=== PATIENT | female | born 1935 | race Caucasian/White ===

== ENCOUNTER → 2017-03-08 | Outpatient (CLI) | payer MEDICARE, MEDICAID ==
[~2017-03-08] MED LIST: ACET-2321 PO; ALBU8.5H INH; ASPI-917 PO; DOCU100C19 PO; ENAL20TA PO; FLUT16SP EA NOSTRIL; GLUC1CAP9 PO; GLYB2.5T5 PO; HYDR-2164 PO; LEVO25TA51 PO; LOPE2CAP PO; METO-68 PO; NIAC-9 PO; PARO30TA60 PO; POLY17PO18 PO; PREN1TAB53 PO; TOLT4CAP12 PO; TRAM50TA53 PO
[2017-03-08 15:14] LABS: BLOOD, URINE NEGATIVE (NEGATIVE); COLOR,URINE YELLOW (YELLOW); LEUKOCYTE ESTERASE ,URINE TRACE (NEGATIVE); NITRITE,URINE NEGATIVE (NEGATIVE); UROBILINOGEN,URINE 0.2 EU/DL (NORMAL)
== END ==
LOC: LABN.SV 15:07
PROVIDERS: ATTEND Family Medicine
DX: I10 Essential (primary) hypertension (principal)
CPT/HCPCS: 81003

== ENCOUNTER 2018-03-17 05:31 | Inpatient (IN) ==
[2018-03-17] MEDS ORDERED: CEFAZOLIN 1 G INJECTION IVP ONE (05:52)
[2018-03-17 06:00] VITALS: BMI 36.1
[2018-03-17] MEDS ORDERED: FAMOTIDINE PB 20 MG/50 ML BAG IV ONE (06:00)
[2018-03-17] MEDS ORDERED: METOCLOPRAMIDE 10mg/2ml INJECTION IVP ONE (06:00)
[2018-03-17] MEDS ORDERED: LIDOCAINE 1% (10mg/ml) 2mL INJ PF SDV ID ONE (06:00)
[2018-03-17] MEDS ORDERED: ACETAMINOPHEN 500 MG TABLET PO ONE (06:00)
[2018-03-17] MEDS: LR 1,000 ML IV SCH ×2 (06:15→07:45)
[2018-03-17] MEDS ORDERED: VANCOMYCIN 1,000 MG INJECTION ONE (06:21)
[2018-03-17] MEDS: NOZIN NASAL SWAB NAS SCH ×5 (06:23→23:24)
[2018-03-17] MEDS: ONDANSETRON 4 MG/2 ML INJECTION IVP ONE ×2 (06:24→06:26)
--- NOTE | 2018-03-17 06:44 | Anesthesia Preoperative Report ---
Anesthesia Preoperative Record - Date and Time Date: 03/17/18 Preoperative Diagnosis: Lt TKA M17.12 primary osteoarthritis Proposed Procedure: left total knee arthroplasty NPO Since Date: 03/16/18 NPO Since Time: 23:00 Allergies/Adverse Reactions: Allergies Allergy/AdvReac Type Severity Reaction Status Date / Time adhesive Allergy Mild REDNESS Verified 03/17/18 06:02 amoxicillin Allergy Unknown Verified 03/17/18 06:02 clavulanic acid Allergy Unknown Verified 03/17/18 06:02 latex Allergy Unknown Verified 03/17/18 06:02 metformin Allergy Unknown Verified 03/17/18 06:02 ondansetron Allergy Unknown Verified 03/17/18 06:02 codeine AdvReac Mild LIGHT-HEADE Verified 03/17/18 06:02 DNESS - Vital Signs Vital Signs: Temperature 98.4 F 03/17/18 05:59 Pulse Rate 74 03/17/18 06:20 Respiratory Rate 16 03/17/18 05:59 Blood Pressure 155/72 H 03/17/18 06:20 Pulse Oximetry 97 03/17/18 05:59 Height and Weight: Height 1.66 m Weight 100.1 kg Body Mass Index 36.1 - Medications Inpatient Medications: Current Medications Cefazolin Sodium (Kefzol 1 Gm Vial) 2 g IVP PREOP ONE Stop: 03/17/18 05:53 Lactated Ringer's (Lactated Ringers) 1,000 mls @ 50 mls/hr IV .Q20H [facility] Last Admin: 03/17/18 06:15 Dose: 50 mls/hr Epinephrine HCl 0.25 mg/Bupivacaine HCl 30 ml/Ketorolac Tromethamine 60 mg/ Sodium Chloride 62.25 mls @ 1 mls/hr OPSITE INTRAOP ONE PRN Reason: Protocol Stop: 03/19/18 22:14 Isopropyl Alcohol (Nozin Nasal Swab) 1 each LOUANN Q1M RICHELLE Stop: 03/17/18 12:18 Last Admin: 03/17/18 06:27 Dose: 1 each Sodium Chloride (Iv Flush) 10 - 80 ml IV PRN PRN PRN Reason: Flushing Tranexamic Acid (Cyklokapron) 1,000 mg TOP INTRAOP ONE Stop: 03/17/18 12:15 Home Medications: Home Medications Medication Instructions Recorded Confirmed Type hydroCHLOROthiazide 25 mg PO DAILY #0 12/05/08 03/10/18 History [Hydrochlorothiazide] Fluticasone Nasal [place] [Flonase] 1 spray EA NOSTRIL BID #0 04/26/16 03/10/18 History Niacin [Niacin ER] 500 mg PO HS #0 04/26/16 03/10/18 History Acetaminophen 650 mg PO BID 12/03/17 03/10/18 History Aspirin [Aspirin EC] 81 mg PO DAILY 12/03/17 03/16/18 History Calcium Carbonate/Vitamin D3 1 tab PO BID 12/03/17 03/10/18 History [Calcium 500-Vit D3 200 Tablet] Clopidogrel [Plavix] 75 mg PO DAILY 12/03/17 03/16/18 History Docusate Sodium [Colace] 100 mg PO BID 12/03/17 03/10/18 History Enalapril [Vasotec] 20 mg PO DAILY 12/03/17 03/10/18 History Esomeprazole Magnesium [Nexium] 40 mg PO ACB 12/03/17 03/10/18 History GlipiZIDE [Glucotrol] 5 mg PO BID 12/03/17 03/10/18 History Levothyroxine Tab [Synthroid] 25 mcg PO ACB 12/03/17 03/10/18 History Methylcellulose [Citrucel] 500 mg PO DAILY 12/03/17 03/10/18 History Metoprolol Tartrate [Lopressor] 50 mg PO BID 12/03/17 03/10/18 History PARoxetine HCl [Paxil] 30 mg PO DAILY 12/03/17 03/10/18 History Simvastatin [Zocor] 20 mg PO HS 12/03/17 03/10/18 History Tolterodine LA 4 mg [Detrol LA] 4 mg PO DAILY 12/03/17 03/10/18 History vsqrrnbq-hry-epupd acid 0.4 1 tab PO DAILY 01/26/18 03/10/18 History mg-lycopene 300 mcg-lutein 250 mcg tablet Albuterol/Ipratropium [Duoneb] 1 unit AEROSOL BID 03/10/18 03/10/18 History raNITIdine HCl [Zantac] 150 mg PO BID 03/10/18 03/10/18 History - Medical History Respiratory: DENIES: Sleep Apnea Cardiovascular: Reports: Coronary Artery Disease (stent 10 years ago ), Hypertension, High Cholesterol, Other (PVD, cleared for surgery per Dr. Waddell ) Gastrointestional: Reports: Gastroesophageal Reflux Disease, Morbid Obesity Neuro/Musculoskeletal: Reports: Depression, Other (chronic lower back pain and numbness in legs ) Renal/Endocrine: Reports: Diabetes Mellitus Type 2, Thyroid Disease - Surgical History HEENT Surgeries: Reports: Tonsillectomy (and uvulectomy age 8) Cardiac Surgeries/Treatments: Reports: Cardiac Catheterization (cardiac stent 2004) GI Surgery/Treatments: Reports: Appendectomy, Cholecystectomy, Hernia Repair (w / mesh 2005), Colonoscopy (2004) Musculoskeletal Surgery/Tx: Reports: Knee Arthroscopy, Orthopedic Surgery (Lt hip 2015), Shoulder Arthroscopy, Total Hip Replacement (bilateral), Total Knee Replacement (Rt TKA 2005) Reproductive Surgery/Treatment: Reports: Hysterectomy Anesthesia Reactions: Other (possible acoma for 2 days hip or knee ) Hx Family Anesthesia Reaction: No History of Motion Sickness: No - Social History Smoking Status: Former smoker Substance Use Type: does not use Alcohol Intake Frequency: does not drink - Pertinent Findings Laboratory: CBC and BMP 03/17/18 06:08 BMP 03/17/18 06:08 Sodium 135 Potassium 3.6 Chloride 93 L Carbon Dioxide 32 H BUN 23.0 H Creatinine 0.8 Glucose 215 H Calcium 9.7 EKG: Sinus Rhythm - Discussion Discussion: Discussed risks/options/alternatives of anesthesia and questions answered. Patient consents. Nursing pain assessment noted. Attestation Statement: Prior to the delivery of any anesthetic medication, I examined the patient, developed the plan, obtained the patient's consent and discussed the risk and benefits of the procedure with the patient/guardian.
[2018-03-17] MEDS ORDERED: VANCOMYCIN 1,000 MG INJECTION IAR ONE (07:05)
[2018-03-17] MEDS ORDERED: LIDOCAINE 2% (100mg/5mL) 5ml PF SDV ONE (07:07)
[2018-03-17] MEDS ORDERED: KETAMINE 500 MG/10 ML INJECTION ONE (07:07)
[2018-03-17] MEDS ORDERED: FentaNYL 250 MCG/5 ML INJECTION ONE (07:07)
[2018-03-17] MEDS ORDERED: PROPOFOL 500 MG/50 ML VIAL ONE (07:07)
--- NOTE | 2018-03-17 07:17 | History & Physical Update ---
- History and Physical Update Date: 03/17/18 Update: I evaluated this patient and found no changes in the history and clinical exam findings. The treatment plan and recommendations are also unchanged from the previous documentation. Patient is ASA3, Due to patient's advanced age (82), CAD with history of angioplasty, HTN, DM II, hypothyroidism. She will require closer monitoring post-operatively and was changed to inpatient status.
[2018-03-17] MEDS ORDERED: EPINEPHrine PF 0.25 MG, BUPIVACAINE 0.25% PF 30 ML, KETOROLAC INJ 60 MG in NS 30 ML OPSITE ONE (08:00)
[2018-03-17] MEDS ORDERED: ROPIVACAINE 0.5% (5mg/ml) 30ml INJ ONE (08:26)
[2018-03-17] MEDS ORDERED: FentaNYL 100 MCG/2 ML INJECTION IVP PRN (08:36)
--- NOTE | 2018-03-17 08:47 | Operative Note ---
- Procedure Preoperative Diagnosis: Left knee primary degenerative joint disease Postoperative Diagnosis: Same as preoperative diagnosis. Surgeon: Caty More MD Field Party Manager: Estrella Rollins Complications: None. Anesthesia: General Estimated Blood Loss: See Anesthesia Record. Fluids: Please see Anesthesia Record. Description of Procedure: Mrs. Mckenzie and her left knee were identified and marked in the preoperative holding area. She was brought back to the operating suite. General anesthetic was administered and she was placed supine on the operating table. The left lower extremity was prepped and draped in my normal sterile fashion. Timeout was performed. The Goko robotic arm was used during the surgery. She is a fixed varus deformity with a significant flexion contracture. A standard anterior midline incision followed by medial parapatellar arthrotomy was performed. Anterior fat pad and meniscus were removed. She had significant arthritic disease in all 3 compartments. The patella was everted and a patella osteotomy was performed leaving 13 mm of bone. Tibial and femoral arrays and checkpoints were placed both within the original incision. The bone was then registered with the Goko robot. Osteophytes were removed and gaps were captured both 90 and 0 degrees with correction. Goko robotic software was utilized to obtain an 18 mm gaps throughout. The Goko robotic arm was then used to assist with the bone cuts. Posterior osteophytes and remaining meniscus were removed. Trial components were placed. We used a 5 femur and a 4 tibia with a 9 mm spacer and a 2 patella. She tracked well and was well balanced throughout range of motion. The arrays were then removed and the knee exsanguinated and the tourniquet inflated to 250 mmHg. The tibia was then stamped the proper rotation. I then cemented the components into place and allowed them to cure in extension. During this time the tourniquet was let down and hemostasis was obtained with electrocautery. 1 g of TXA was allowed to sit in the wound for 5 minutes and then suctioned out. After the cement had cured the knee again was taken through range of motion and was well balanced and tracked well. After a final thorough irrigation with normal saline as well as Betadine 1 g vancomycin powder was placed into the knee joint. We then closed the capsule with #1 Vicryl. I then left my urgent care physician assistant closed the subcutaneous tissue with both 2-0 Vicryl in an interrupted fashion as well as a running 0 V-lock barbed suture. The subcutaneous tissue closed with a carla Monoderm. Mediplex dressing will be placed and the patient will be taken back to the recovery room under the care of anesthesia.
[2018-03-17] MEDS ORDERED: ONDANSETRON 4 MG/2 ML INJECTION IVP PRN (09:53)
[2018-03-17] MEDS ORDERED: TRAMADOL 50 MG TABLET PO PRN (09:53)
[2018-03-17] MEDS ORDERED: DiphenhydrAMINE 50 MG/ML INJECTION IVP PRN (09:53)
[2018-03-17] MEDS ORDERED: LORazepam 1 MG TABLET PO PRN (09:53)
[2018-03-17] MEDS ORDERED: NOZIN NASAL SWAB NAS ONE (09:53)
[2018-03-17] MEDS ORDERED: DiphenhydrAMINE 25 MG CAPSULE PO PRN (09:53)
[2018-03-17] MEDS: NS 1,000 ML IV SCH ×2 (10:05→23:24)
[2018-03-17] MEDS ORDERED: FALL RISK - PHARMACY CONSULT MC ONE (10:20)
--- NOTE | 2018-03-17 10:26 | Anesthesia Procedure Note ---
Peripheral Nerve Blockade - Procedure Physician: Markie More MD Date: 03/17/18 Surgical Procedure: left knee arthroplasty Discussion: Discussed risks/options/alternatives of anesthesia and questions answered. Patient consents. Nursing pain assessment noted. Block Start: 09:20 Block Stop: 09:21 Blocked Employed: Adductor Canal Indication: Post-Operative Pain Approach: Left Side Confirmed Position: Supine Patient: Consent, Risks/Benefits Discussed, Informed, Post Block Act. Discussed IV Sedation: No Initial Vital Signs: Temperature 98.4 F 03/17/18 05:59 Temperature Source Oral 03/17/18 05:59 Pulse Rate 81 03/17/18 05:59 Respiratory Rate 16 03/17/18 05:59 Blood Pressure 194/84 H 03/17/18 05:59 Blood Pressure Mean 120 03/17/18 05:59 Blood Pressure Position Sitting 03/17/18 05:59 Pulse Oximetry 97 03/17/18 05:59 Oxygen Delivery Method 03/17/18 05:59 Post Vital Signs: Temperature 96.6 F L 03/17/18 10:02 Pulse Rate 83 03/17/18 10:02 Respiratory Rate 16 03/17/18 10:02 Blood Pressure 167/101 H 03/17/18 10:02 Pulse Oximetry 96 03/17/18 10:02 Initial Pain Pain Score: 3 Post Block Pain Score: 3 Prep: Chlorhexadine/ETOH Ultrasound Used?: Yes - Injectate Ropivacaine (%): 0.5 Ropivacaine (mL): 15 Injection: Injection made incrementally with constant monitoring and aspiration every ml
--- NOTE | 2018-03-17 10:32 | Anesthesia Postoperative Note ---
- Date and Time Date: 03/17/18 Time: 10:00 - Status Patient Participated in Evaluation: Patient Participated in Person Vital Signs: Temperature 96.6 F L 03/17/18 10:02 Pulse Rate 83 03/17/18 10:02 Respiratory Rate 16 03/17/18 10:02 Blood Pressure 167/101 H 03/17/18 10:02 Pulse Oximetry 96 03/17/18 10:02 Respiratory Function: Airway Patent Cardiovascular Function: Regular Pulse EKG: Sinus Rhythm Mental Status: Alert and Oriented Pain Intensity: 3 Hydration: IV Infusing Complications During Recover: None Apparent - Follow-Up Instructions Instructions: Per Surgeon
[2018-03-17] MEDS: INSULIN ASPART 100unit/ml INJECTION SQ PRN ×3 (10:35→20:40)
--- NOTE | 2018-03-17 11:10 | XRay Report ---
Indication: postoperative image PROCEDURE: XR knee LT 2V: Encounter: Initial Comparison: December 31, 2017 Findings: Postoperative changes of left total knee replacement are seen. There is expected postoperative subcutaneous gas. No evidence of hardware failure or acute fracture. No retained radiopaque surgical instruments or sponges. Overlying material causing artifact. Impression: New left total knee prosthesis without evidence of immediate complication. .
[2018-03-17] MEDS ORDERED: SALINE FLUSH 10ml SYRINGE IV PRN (12:14)
[2018-03-17] MEDS ORDERED: TRANEXAMIC ACID 1,000 MG/10 ML VIAL TOP ONE (12:14)
[2018-03-17] MEDS: ACETAMINOPHEN 325 MG TABLET PO SCH ×3 (13:50→22:56)
[2018-03-17] MEDS: CEFAZOLIN 2 G in NS 100 ML IV SCH ×2 (15:04→23:25)
[2018-03-17] MEDS ORDERED: NIACIN ER 500 MG TABLET PO SCH (21:00)
[2018-03-17] MEDS ORDERED: SENNOSIDES 8.6 MG TABLET PO SCH (21:00)
[2018-03-17] MEDS ORDERED: SIMVASTATIN 20 MG TABLET PO SCH (21:00)
[2018-03-17] MEDS: DOCUSATE SODIUM 100 MG CAPSULE PO SCH ×2 (22:56→22:58)
[2018-03-17] MEDS: RANITIDINE 150 MG TABLET PO SCH (22:59)
[2018-03-17] MEDS: FLUTICASONE NASAL SPRAY 50mcg EA NOSTRIL SCH (23:00)
[2018-03-17] MEDS: CALCIUM 500 + VIT D 200 TABLET PO SCH (23:00)
[2018-03-18] MEDS: NOZIN NASAL SWAB NAS SCH ×2 (06:10→13:37)
[2018-03-18] MEDS: INSULIN ASPART 100unit/ml INJECTION SQ PRN ×2 (06:10→12:26)
[2018-03-18] MEDS ORDERED: OMEPRAZOLE 20 MG CAPSULE PO SCH (06:30)
[2018-03-18] MEDS ORDERED: LEVOTHYROXINE 25 MCG TABLET PO SCH (06:30)
[2018-03-18] MEDS: DOCUSATE SODIUM 100 MG CAPSULE PO SCH ×2 (08:45→09:20)
--- NOTE | 2018-03-18 08:49 | Orthopedic Progress Note ---
Date: Date: 03/18/18 Time: 842 Subjective/Severity of Illness: Raven is lying in bed this morning when I visit. Patient states her pain has done well, but feels "it needs to rest". She has ambulated up to the bathroom with nursing. Overnight patient's mepilex dressing became saturated with bloody drainage, ABD and gauze applied. BP were elevated after surgery yesterday (SBP 170-200s), home meds restarted and SBP improved 130-150s. Blood glucose 183-291, receiving Novolog SS. Patient was nauseated after surgery, improved this morning with increased appetite. Will restart home medications. Hgb 9.2. Denies CP, SOA, nausea improved this morning. She is independent living at [facility]. Orthopedic Exam Vital signs: Temperature 97.9 F 03/18/18 03:50 Pulse Rate 82 03/18/18 03:50 Respiratory Rate 14 03/18/18 03:50 Blood Pressure 131/72 03/18/18 03:50 Pulse Oximetry 94 03/18/18 06:47 - Constitutional General Appearance: Present: alert, orientated x3 - Respiratory Exam Present: CTA bilaterally, non-labored - Cardiovascular Exam Present: Regular Rate/Rhythm, murmur - Extremities Exam Present: pulses intact. Absent: calf tenderness, Bib's sign - Dressing Comments: Bloody drainage on Gauze. Eccymossis along surgical incision. Cleansed surgical site with chloraprep and applied christiano, hemostasis achieved. Mepilex dressing applied. - Neurological Exam Present: intact to light touch, no deficits - Labs Result Diagrams: 03/18/18 04:04 03/18/18 04:04 Abnormal lab results 03/18/18 03/18/18 Range/Units 04:04 04:04 Hgb 9.2 L (12-16) GM/DL Hct 28.5 L (36-46) % BUN 23.0 H (7-17) MG/DL Glucose 143 H (65-110) MG/DL H & H 03/18/18 Range/Units 04:04 Hgb 9.2 L (12-16) GM/DL Hct 28.5 L (36-46) % Orthopedic Assessment and Plan (1) Primary osteoarthritis of left knee Status: Acute Assessment and Plan: Current anti-coagulation protocol with ASA 81mg daily and Plavix 75mg daily VTE prophylaxis. SCD's for added protection PT/OT services to improve independent function. Discharge Planning per Case Management. - Anticoagulation Therapy Anticoagulation: Resume home anticoagulant - Additional Diagnoses Hypertension: stable, resume medications Diabetes: resume oral medications, continue with sliding scale insulin, other ( Will continue to closely monitor BG today. ) Anemia: no intervention required, patient was asymptomatic, labs monitored Hospital Course Summary Disclaimer: The visit summary below is not to be considered part of the above Progress Note.
[2018-03-18] MEDS ORDERED: TOLTERODINE 4 MG PO SCH (09:00)
[2018-03-18] MEDS ORDERED: POLYETHYL GLYCOL 3350 17gm PACKET PO SCH (09:00)
[2018-03-18] MEDS ORDERED: ASPIRIN *EC* 81 MG TABLET PO SCH (09:00)
[2018-03-18] MEDS ORDERED: CLOPIDOGREL 75 MG TABLET PO SCH (09:00)
[2018-03-18] MEDS ORDERED: GlipiZIDE 5 MG TABLET PO SCH (09:00)
[2018-03-18] MEDS ORDERED: PAROXETINE 20 MG TABLET PO SCH (09:00)
--- NOTE | 2018-03-18 09:01 | Procedure Note ---
Date of procedure: 03/17/18 Procedure: Patient complaining of sensation of FB in right eye. Was irrigated with saline by nursing, eyelash irrigated out. Patient continued to have sensation of FB. Applied Fluorescein dye to lower eyelid. Black light then used to asses for corneal abrasion. No uptake of fluorescein dye noted. Upper eyelid inverted, no FB noted. Patient tolerated well.
[2018-03-18] MEDS ORDERED: SENNOSIDES 8.6 MG TABLET PO PRN (09:17)
[2018-03-18] MEDS: ACETAMINOPHEN 325 MG TABLET PO SCH ×2 (09:20→13:35)
[2018-03-18] MEDS: CALCIUM 500 + VIT D 200 TABLET PO SCH (09:21)
[2018-03-18] MEDS: RANITIDINE 150 MG TABLET PO SCH (09:21)
[2018-03-18] MEDS: FLUTICASONE NASAL SPRAY 50mcg EA NOSTRIL SCH (09:23)
[2018-03-18 09:41] VITALS: RESP 16; O2SAT 97
[2018-03-18 12:29] VITALS: BP 149/85; PULSE 98; TEMP 98.4
--- NOTE | 2018-03-18 13:27 | Discharge Summary ---
Orthopedic Discharge Info Date of admission: 03/17/18 07:14 Anticipated date of discharge: 03/18/18 Primary care physician: Randal Deluna MD Attending Physician: Markie More MD Consults: 03/17/18 05:52 Consult to Anesthesiology [CONS] Routine Reason For Exam: Preoperative Assessment 03/17/18 09:53 Case Management Consult [CONS] Routine Reason For Exam: Discharge Planning DME-Walker [CONS] Routine Height: 5 ft 5.5 in Weight: 100.1 kg Total Joint Outpatient Therapy [CONS] Routine Comment: Remove dressing in 2 weeks 03/18/18 IRU Screening [Inpatient Rehab Screening] [CONS] Routine - Discharge Diagnosis (1) Primary osteoarthritis of left knee Status: Acute - Procedures Procedures: Procedures Ambulation and gait training (02/19/08) Exercise, not elsewhere classified (02/19/08) Laparoscopic repair of umbilical hernia with graft or prosthesis (12/06/08) Occupational therapy (02/19/08) Replacement of Left Hip Joint with Metal on Polyethylene Synthetic Substitute, Uncemented, Open Approach (05/07/16) Total knee replacement (02/15/08) Transfusion of Nonautologous Red Blood Cells into Peripheral Vein, Percutaneous Approach (05/07/16) Transfusion of packed cells (12/06/08) Lt TKA 03/17/18 - Laboratory Result Diagrams: 03/18/18 04:04 03/18/18 04:04 Laboratory: Abnormal lab results 03/18/18 03/18/18 Range/Units 04:04 04:04 Hgb 9.2 L (12-16) GM/DL Hct 28.5 L (36-46) % BUN 23.0 H (7-17) MG/DL Glucose 143 H (65-110) MG/DL H & H 03/18/18 Range/Units 04:04 Hgb 9.2 L (12-16) GM/DL Hct 28.5 L (36-46) % Orthopedic Discharge HPI - HPI Comments This patient was admitted for elective surgical tx of end stage degenerative joint disease that failed to respond to conservative treatment. Further details of this is found in the admission H&P. Orthopedic Hospital Course Hospital course: 03/18/18 13:25 After appropriate preoperative clearance and signing of operative consent, the patient was given IV antibiotics, according to orthopedic protocol. The patient was taken to the operating room and underwent elective left total knee arthroplasty. Following surgery, antibiotics were discontinued less than 24 hours according to joint protocol. Aspirin and Plavix were initiated and SCDs added for DVT prevention. The dressing was clean, dry, and intact at discharge. The wound looked good, but did require placement of several christiano due to post op drainage. Pain control was obtained via multimodal approach. Bowel motivation addressed with scheduled and PRN medications. Early mobilization was initiated through PT services. Discharge arrangements made by a collaborative effort between the patient and Case Management. Her other chronic medical conditions have remained stable. Blood sugars were elevated and sliding scale is used in addition to her home meds. This will be monitored closely in IRU. Her BP has been slightly elevated but improving. She had some bloody drainage from the wound and christiano were placed. Will monitor for additional drainage while in IRU. Follow-up is scheduled in 2-3 weeks. Discharge instructions given by orthopedic providers and nursing staff at discharge. Discharge condition was good. 03/18/18 13:27 Care extended to > 2 midnight stays?: No Discharge Plan - Med Rec/Dispo Referrals/Follow Up: Markie More MD [Physician] - 04/08/18 10:30 am [facility] Instructions: [facility] Postop Instructions Prescriptions: New Milk of Magnesia [Mom] 30 ml PO DAILY udc PEG 3350 17gm PACKET [Miralax] 17 gm PO DAILY packet Tramadol [Ultram] 50 mg PO Q6H PRN tab PRN Reason: Pain Docusate Sodium [Colace] 100 mg PO BID cap Continue hydroCHLOROthiazide [Hydrochlorothiazide] 25 mg PO DAILY #0 Fluticasone Nasal [place] [Flonase] 1 spray EA NOSTRIL BID #0 Levothyroxine Tab [Synthroid] 25 mcg PO ACB Acetaminophen 650 mg PO BID Simvastatin [Zocor] 20 mg PO HS Calcium Carbonate/Vitamin D3 [Calcium 500-Vit D3 200 Tablet] 1 tab PO BID Aspirin [Aspirin EC] 81 mg PO DAILY PARoxetine HCl [Paxil] 30 mg PO DAILY GlipiZIDE [Glucotrol] 5 mg PO BID Metoprolol Tartrate [Lopressor] 50 mg PO BID Clopidogrel [Plavix] 75 mg PO DAILY Enalapril [Vasotec] 20 mg PO DAILY Methylcellulose [Citrucel] 500 mg PO DAILY Esomeprazole Magnesium [Nexium] 40 mg PO ACB raNITIdine HCl [Zantac] 150 mg PO BID Albuterol/Ipratropium [Duoneb] 1 unit AEROSOL BID Tramadol [Ultram] 50 mg PO Q6HR Niacin [Niacin ER] 500 mg PO HS #0 Docusate Sodium [Colace] 100 mg PO BID Tolterodine LA 4 mg [Detrol LA] 4 mg PO DAILY Cholecalciferol (Vitamin D3) [Vitamin D3] 1 cap PO DAILY icxdynas-exh-pviau acid 0.4 mg-lycopene 300 mcg-lutein 250 mcg tablet 1 tab PO DAILY - Disposition 62 To [facility] - Dismissal Complete Discharge Instructions are:: Complete
[2018-03-19] MEDS ORDERED: BISACODYL 10 MG SUPPOSITORY RECTALLY SCH (20:00)
== END 2018-03-18 14:00 | DRG 470 ==
LOC: SUR 05:31 → NMC.PERIOP 05:34 → SRG 07:14
PROVIDERS: ADMIT Orthopaedic Surgery; ATTEND Orthopaedic Surgery

== ENCOUNTER 2018-03-18 14:00 | Inpatient (IN) ==
[2018-03-18 14:41] VITALS: BMI 36.6
--- NOTE | 2018-03-18 15:35 | IRU History & Physical Report ---
HPI IRU Date: Date: 03/18/18 Time: 1532 Chief complaint: My knee hurts HPI: Jonah HPI: Ms. Mckenzie is a very pleasant 82-year-old female living in [place], [place] at [facility] in halfway care. Referring physician is Markie More M.D. Her primary care doctor is Randal Deluna M.D. She presented for elective left total knee replacement which was performed by Dr. More on 03/17/2018 for primary degenerative joint disease. She tolerated the procedure well. The robotic arm was used during the procedure. In the postoperative timeframe however she developed some additional bloody drainage from the knee. In addition, the patient's blood pressures were significantly elevated after surgery in the 170-200 systolic range. Blood sugars have been elevated up to 291. The patient does have history of diabetes mellitus. A1c has now patient was 7.1%. She states that she does not check her blood sugars at home. She did in the past every other day but has not done that for a long time since her machine broke. Patient is also followed by Dr. Jose Waddell for cardiology issues. She has a history of stent placement in 2004. She is on 81 mg of aspirin daily. He approved stopping Plavix and aspirin for 5 days prior to the procedure but recommended restarting them both after the knee replacement. Upon exam she does have an obvious murmur which sounds like aortic stenosis. Review of preoperative cardiology exam indicates murmur but does not further describe it. It is not clear if she has had an echocardiogram or not. She has history of essential hypertension and is on enalapril plus hydrochlorothiazide. She has history of hyperlipidemia and is on Zocor in this regard. Her preoperative electrocardiogram showed no acute changes and she was in sinus mechanism. Patient's BMI is 37. The patient is morbidly obese in view of her hypertension plus diabetes mellitus. She [facility] a [facility]. Call was placed to the facility. They indicate that she requires minimal care prior to this. She was fairly independent. She would require a bit of set up for dressing and meals but otherwise was fairly independent. She reports no steps/stairs. She has used a front-wheeled walker prior to the current admission. Prior to the current event she was fairly independent except required supervision for bathing. She was modified independent level for toilet transfers and walking. She was able to walk with a rolling walker at the facility. However she reports significant dyspnea with ambulating long distances in her living situation. She would have to stop and take a break. She denied any chest pain however. She reports episodes of vertigo/spinning sensation when she is up and about. That has happened as recently as today. She reports that she gets these from time to time. Current level of functioning indicates that she is independent for eating, requires supervision for grooming, moderate assistance for bathing and lower body dressing. She requires minimum assistance for upper body dressing, toileting and bed/chair/wheelchair transfers, toilet transfers and walking. She is able to ambulate with a rolling walker 130 feet. The following medical conditions are noted and require active monitoring and/or management: 1. s/p left total knee arthroplasty with increased blood drainage. She will require close monitoring of the wound. 2. Diabetes Mellitus type II, recently requiring insulin and with elevated blood sugars. She will require close monitoring of her blood sugars and additional insulin if needed. 3. Systolic heart murmur consistent with aortic stenosis. We do not have a confirmatory echocardiogram. However if this is aortic stenosis she is at risk of lightheadedness from that etiology. 4. Benign essential hypertension: Her blood pressure has been elevated recently on acute care. 5. Vertigo: She complains of recent vertigo/spinning sensation when she is up and about. The following therapies will be needed: 1. Physical therapy: for transfers and ambulation and stairs. 2. Occupational therapy: for ADL's and transfers. 3. Medical management: for the above conditions. 4. 24 hour Rehabilitation Nursing to monitor and address the following: Close monitoring of the surgical wound with regard to bleeding, monitoring of blood sugars, blood pressure and to reduce fall risk in view of her vertigo. 5. Dietitian in view of report of anorexia as well as her diabetes. [facility] Patient Stated Medical History Cataracts Yes Other HEENT Yes: nasal polyps, tumor behind OD Coronary Artery Disease Yes: stent 10 years ago Hypertension Yes Other Cardiology Yes: PVD, cleared for surgery per Dr. Waddell Sleep Apnea No: high risk for LEONIDAS Diabetes Mellitus Type 2 Yes Gastroesophageal Reflux Yes Disease Hx Incontinence Yes Hx Kidney Stones Yes: h/o Osteoarthritis Yes Other Musculoskeletal Yes: chronic lower back pain and numbness in legs Other Infectious Yes: I&D abscess left anterior thigh, age 11 Depression Yes Clinic Medical History (Last Reviewed 01/26/18 @ 12:13 by Markie More MD) Thyroid disease (Chronic Medical) Functional dyspepsia (Chronic Medical) Hypothyroidism (Chronic Medical) GERD (gastroesophageal reflux disease) (Chronic Medical) Dorsalgia (Chronic Medical) Hyperlipidemia (Chronic Medical) Osteoporosis (Chronic Medical) Cataracts, bilateral (Chronic Medical) Allergic rhinitis (Chronic Medical) Type 2 diabetes mellitus (Chronic Medical) Coronary artery disease (Chronic Medical) Primary hypertension (Chronic Medical) Osteoarthritis (Acute Medical) Surgical History: LT JONATHAN. RT JONATHAN. RT TKA. LAP HERNIA MESH. UMB HERNIA. CHOLECYSTECTOMY. HYSTERECTOMY. T&A. I&D ABCESS THIGH AGE 11 Family History: Family History (Last Reviewed 01/26/18 @ 12:13 by Markie More MD) Mother Heart attack Heart failure High blood pressure High cholesterol - Social History Smoking status: Former smoker Packs per day: 2.5 (Smoked from age 38 to 42, 2-3 PPD) Packs-years: 10 Substance use type: does not use Alcohol intake: former Alcohol intake frequency: does not drink Housing: [facility] Household members: other Current occupational status: retired Current residence: [place] Social history: Patient's about 20 years ago. 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 She has lived at [facility] for about a year or more. Review of Systems - Constitutional Constitutional: Present: anorexia (reports reduced appetite for about a year but despite that has gained weight.), fatigue, weight gain. Absent: chills, fever(s), headache(s), lethargy, malaise, night sweats, weakness, weight loss - EENMT Eyes: Absent: blurry vision, change in vision, diplopia Mouth/Throat: Absent: changes in swallowing, painful swallowing, change in taste , bleeding gums, change in voice - Cardiovascular Cardiovascular: Present: dyspnea on exertion (prior to her surgery she had to stop and rest if she walked a significant distance down the hallway at her place of residence.). Absent: chest pain, palpitations, syncope, orthopnea, edema, cyanosis, heart murmur Rhythm: Present: regular rhythm Vascular: Absent: intermittent claudication, pedal edema, unilateral swelling - Respiratory Respiratory: Present: dyspnea on exertion. Absent: cough, dyspnea, hemoptysis, wheezing, pain on inspiration, chest congestion, excessive phlegm production - Gastrointestinal Gastrointestinal: Absent: abdominal pain, change in bowel habits, constipation, diarrhea, dyspepsia, dysphagia, early satiety, hematochezia, melena, nausea, vomiting - Musculoskeletal Musculoskeletal: Present: arthralgias. Absent: abnormal gait, back pain, joint swelling, limited range of motion, muscle weakness - Integumentary/Breasts Integumentary: Absent: alopecia, erythema, lesions, pruritus, rash, jaundice - Neurological Neurological: Absent: abnormal gait, abnormal movements, abnormal speech, confusion, convulsions, dizziness, focal weakness, frequent falls, headache(s), loss of vision, memory loss, numbness, paresthesias, tremor(s) - Psychiatric Psychiatric: Absent: abnormal sleep pattern, anxiety, depression - Endocrine Endocrine: Absent: cold intolerance, flushing, heat intolerance, palpitations - Hematologic/Lymphatic Hematologic/Lymphatic: Absent: easy bleeding, easy bruising, lymphadenopathy - Allergic/Immunologic Allergic/Immunologic: Absent: urticaria Medications Home Medications Medication Instructions Recorded Confirmed Type hydroCHLOROthiazide 25 mg PO DAILY #0 12/05/08 03/18/18 History [Hydrochlorothiazide] Fluticasone Nasal [place] [Flonase] 1 spray EA NOSTRIL BID #0 04/26/16 03/18/18 History Niacin [Niacin ER] 500 mg PO HS #0 04/26/16 03/18/18 History Acetaminophen 650 mg PO BID 12/03/17 03/18/18 History Aspirin [Aspirin EC] 81 mg PO DAILY 12/03/17 03/18/18 History Calcium Carbonate/Vitamin D3 1 tab PO BID 12/03/17 03/18/18 History [Calcium 500-Vit D3 200 Tablet] Clopidogrel [Plavix] 75 mg PO DAILY 12/03/17 03/18/18 History Docusate Sodium [Colace] 100 mg PO BID 12/03/17 03/18/18 History Enalapril [Vasotec] 20 mg PO DAILY 12/03/17 03/18/18 History Esomeprazole Magnesium [Nexium] 40 mg PO ACB 12/03/17 03/18/18 History GlipiZIDE [Glucotrol] 5 mg PO BID 12/03/17 03/18/18 History Levothyroxine Tab [Synthroid] 25 mcg PO ACB 12/03/17 03/18/18 History Methylcellulose [Citrucel] 500 mg PO DAILY 12/03/17 03/18/18 History Metoprolol Tartrate [Lopressor] 50 mg PO BID 12/03/17 03/18/18 History PARoxetine HCl [Paxil] 30 mg PO DAILY 12/03/17 03/18/18 History Simvastatin [Zocor] 20 mg PO HS 12/03/17 03/18/18 History Tolterodine LA 4 mg [Detrol LA] 4 mg PO DAILY 12/03/17 03/18/18 History lorivvmy-zkg-ramgx acid 0.4 1 tab PO DAILY 01/26/18 03/18/18 History mg-lycopene 300 mcg-lutein 250 mcg tablet Albuterol/Ipratropium [Duoneb] 1 unit AEROSOL BID 03/10/18 03/18/18 History raNITIdine HCl [Zantac] 150 mg PO BID 03/10/18 03/18/18 History Cholecalciferol (Vitamin D3) 1 cap PO DAILY 03/17/18 03/18/18 History [Vitamin D3] Tramadol [Ultram] 50 mg PO Q6HR 03/17/18 03/18/18 History Milk of Magnesia [Mom] 30 ml PO DAILY udc 03/18/18 03/18/18 Rx PEG 3350 17gm PACKET [Miralax] 17 gm PO DAILY packet 03/18/18 03/18/18 Rx Tramadol [Ultram] 50 mg PO Q6H PRN tab 03/18/18 03/18/18 Rx Allergies Allergy/AdvReac Type Severity Reaction Status Date / Time adhesive Allergy Mild REDNESS Verified 03/17/18 06:02 amoxicillin Allergy Unknown Verified 03/17/18 06:02 clavulanic acid Allergy Unknown Verified 03/17/18 06:02 latex Allergy Unknown Verified 03/17/18 06:02 metformin Allergy Unknown Verified 03/17/18 06:02 ondansetron Allergy Unknown Verified 03/17/18 06:02 codeine AdvReac Mild LIGHT-HEADE Verified 03/17/18 06:02 DNESS Results IRU - Labs Labs: I have reviewed her inpatient record. Exam Vital Signs: Temperature 98.5 F 03/18/18 15:14 Pulse Rate 89 03/18/18 15:14 Respiratory Rate 16 03/18/18 15:14 Blood Pressure 153/66 H 03/18/18 15:14 Pulse Oximetry 93 03/18/18 15:14 Height/Weight/BMI: Height 1.66 m Weight 101.5 kg Body Mass Index 36.6 - Constitutional Present: mild distress, well nourished, well developed, morbidly obese, cooperative - Routine HEENT Exam Head: Present: normocephalic, atraumatic. Absent: cushingoid faces, abrasion, laceration, hematoma Eye: Present: EOMI, PERRL. Absent: conjunctival icterus, scleral injection, periorbital swelling, nystagmus ENT: Present: mucous membranes moist, oropharynx clear. Absent: dentition normal (she has remaining natural teeth in the mandible toward the front but has lost most of her other teeth.) - Routine Neck Exam Present: supple, full ROM, trachea midline. Absent: lymphadenopathy, thyromegaly, tenderness, swelling - Routine Chest/Breast/Axilla Exam Chest wall: Absent: tenderness, mass Axillae: Absent: lymphadenopathy, mass - Routine Respiratory Exam Present: CTA bilaterally. Absent: accessory muscle use, decreased breath sounds , prolonged expiratory phase, rales, respiratory distress, rhonchi, stridor, wheezes, crackles, distant breath sounds - Routine Cardiovascular Exam Present: RRR, S1, S2, murmur (has a grade 3/6 systolic murmur second right interspace and 2/6 systolic murmur left sternal border.). Absent: gallop, S3, S4, click, irregular rhythm - Routine Abdominal Exam Present: soft, normoactive bowel sounds, non distended, non tender. Absent: rebound, guarding, firm, rigid, organomegaly, mass, hernia, wound - Routine Extremities Exam Present: no edema, non tender, pulses intact. Absent: cyanosis, clubbing - Routine Back/Spine/Pelvis Exam Back/Spine: Present: full ROM. Absent: scoliosis, kyphosis - Routine Skin Exam Present: intact, dry, warm. Absent: cyanosis, erythema, pallor, mottling, petechiae, urticaria, lesions, jaundice - Routine Neurological Exam Present: alert, oriented X3, CN II-XII intact, moving all extremities, normal speech - Routine Psychiatric Exam Present: normal affect, normal thought process, cooperative, good insight, good judgment. Absent: depressed, anxious Sepsis Assessment - Evaluation Severe Sepsis: none seen IRU A/P (1) Status post total knee replacement, left Current visit: Yes Status: Acute Patient has some initial excess bleeding. Norberto have been placed. Wound will be monitored and orthopedics will be consulted. (2) Type 2 diabetes mellitus Qualifiers: Diabetes mellitus oysterman insulin use: without oysterman use Diabetes mellitus complication status: without complication Qualified Code(s): E11.9 - Type 2 diabetes mellitus without complications Current visit: No Status: Chronic Patient's blood sugars have been elevated while on acute care. She does not check her blood sugars at home. She is not on long-term insulin but has required supplemental insulin here in the hospital. She is at risk for hypoglycemia as well as hyperglycemia. (3) Coronary artery disease Qualifiers: Coronary Disease-Associated Artery/Lesion type: [place] artery [place] vs. transplanted heart: [place] heart Associated angina: without angina Qualified Code(s): I25.10 - Atherosclerotic heart disease of [place] coronary artery without angina pectoris Current visit: No Status: Chronic Vision has been off Plavix and aspirin prior to the surgery. It has since been restarted. She does have history of coronary artery stent placement. She is at risk for coronary artery events. She will be monitored carefully in this regard and we will continue Plavix and aspirin. (4) Vertigo Current visit: Yes Status: Acute She reports spinning sensations when she is up and about. She is at risk of falling. A multidisciplinary approach will be undertaken with PT, OT and 24 hour rehabilitation nursing in this regard. (5) Systolic murmur Current visit: Yes Status: Chronic Patient states that she has been told that she has a heart murmur. We do not know echocardiogram results but clinically this appears to be consistent with aortic stenosis. As such she is at risk of lightheadedness in this regard and will be monitored. (6) Hypertension Qualifiers: Hypertension type: essential hypertension Qualified Code(s): I10 - Essential (primary) hypertension Current visit: No Status: Chronic Her blood pressure has been elevated while on acute care. We will monitor this. DVT Prophylaxis: SCD's Resuscitation Status: Do Not Resuscitate - Course Hospital Course: Dominick Banda MD: - Interventions to Obtain Goals PT Treatment Plan: Balance/Proprioception, Functional Activities, Gait Training , Patient/Family Education, Therapeutic Exercise Goals Progress/Modifications: This patient is medically complex with diabetes mellitus, elevated blood sugars acutely as well as her hypertension which has been elevated while on acute care. She has had some additional bleeding from the wound and this will be monitored carefully. She does have a systolic heart murmur consistent with aortic stenosis as well as symptoms of vertigo. She requires a multidisciplinary approach with PT, OT, 24 hour rehabilitation nursing and medical supervision to allow her to return to her prior level [facility] care at the [facility] ([facility] care).
[2018-03-18] MEDS: TRAMADOL 50 MG TABLET PO PRN ×2 (15:36→21:07)
--- NOTE | 2018-03-18 15:51 | IRU 24Hr Post Admit Eval ---
24 Hr Post Admission Physical - Relevant Changes Relevant Changes: No Reviewed: I have reviewed the patient's information and concur with the finding and results of the pre-admission screen. Certification: I certify the patient for rehabilitation. - Patient Condition (1) Status post total knee replacement, left Status: Acute Code(s): Z96.652 - Presence of left artificial knee joint Classification: Present on IRF Admission, IRF Tx That Should Address Diagnosis, Diagnosis Requiring Medical Follow Up (2) Type 2 diabetes mellitus Status: Chronic Qualifiers: Diabetes mellitus inspector balance bridge insulin use: without [facility] use Diabetes mellitus complication status: without complication Qualified Code(s): E11.9 - Type 2 diabetes mellitus without complications Code(s): E11.9 - Type 2 diabetes mellitus without complications Classification: Present on IRF Admission, IRF Tx That Should Address Diagnosis, Diagnosis Requiring Medical Follow Up (3) Coronary artery disease Status: Chronic Qualifiers: Coronary Disease-Associated Artery/Lesion type: [place] artery [place] vs. transplanted heart: [place] heart Associated angina: without angina Qualified Code(s): I25.10 - Atherosclerotic heart disease of [place] coronary artery without angina pectoris Code(s): I25.10 - Atherosclerotic heart disease of [place] coronary artery without angina pectoris Classification: Present on IRF Admission, Diagnosis Requiring Medical Follow Up (4) Vertigo Status: Acute Code(s): R42 - Dizziness and giddiness Classification: Present on IRF Admission, IRF Tx That Should Address Diagnosis, Diagnosis Requiring Medical Follow Up (5) Systolic murmur Status: Chronic Code(s): R01.1 - Cardiac murmur, unspecified Classification: Present on IRF Admission, Diagnosis Requiring Medical Follow Up (6) Hypertension Status: Chronic Qualifiers: Hypertension type: essential hypertension Qualified Code(s): I10 - Essential (primary) hypertension Code(s): I10 - Essential (primary) hypertension Classification: Present on IRF Admission, IRF Tx That Should Address Diagnosis, Diagnosis Requiring Medical Follow Up - Prior Functional Status Lives With: [employer], Other Residence Type: [facility] Assitive Devices: Front Wheeled Walker Prior Functional Status: Depend. at home or school, Used assistive device, Depend. w/ IADL - Current Functional Status Current Level of Function: Current level of functioning indicates that she is independent for eating, requires supervision for grooming, moderate assistance for bathing and lower body dressing. She requires minimum assistance for upper body dressing, toileting and bed/chair/wheelchair transfers, toilet transfers and walking. She is able to ambulate with a rolling walker 130 feet. Failed Alternative Therapy: Arrived from Acute Care Patient Requirements: The patient requires oversight by rehabilitation physician to manage their rehabilitation treatment plan and multidisciplinary approach to care that can only be provided in an IRF and requires a multidisciplinary approach to care, provided by professional PTs, OTs, STs, dieticians, RTs, rehabilitation nurses and is not available in lesser levels of care. Limitations Req: Mobility Impairment, ADL Impairment Physical Therapy Minutes: 90 Occupational Therapy Minutes: 90 Therapy: The patient is to receive therapy at least 5 days a week. ROM Deficit: Left Lower Extremity - Complications/Comorbidities Impact on Functional Outcomes: The patient's recent surgery and pain may negatively impact her functional outcome. Barriers to Discharge: Weakness, Balance, Pain Control - Plan to Avoid Complications Plan to Avoid Complications: The patient cannot receive this care in a lesser intensive setting such as Shelter or Outpatient Therapy due to the patient requiring the following : The patient is somewhat medically complex and requires close monitoring of her elevated blood sugars with administration of insulin as indicated. She requires close monitoring of her elevated blood pressure as well as pain management, wound monitoring and a multidisciplinary approach with PT and OT to allow her to return safely to her previous environment.
[2018-03-18] MEDS: GlipiZIDE 5 MG TABLET PO SCH (17:37)
[2018-03-18] MEDS: ALBUTEROL 2.5mg/3ml (0.083%) NEB AEROSOL SCH (20:35)
[2018-03-18] MEDS: RANITIDINE 150 MG TABLET PO SCH (21:05)
[2018-03-18] MEDS: CALCIUM 500 + VIT D 200 TABLET PO SCH (21:05)
[2018-03-18] MEDS: DOCUSATE SODIUM 100 MG CAPSULE PO SCH (21:05)
[2018-03-18] MEDS: NIACIN ER 500 MG TABLET PO SCH (21:05)
[2018-03-18] MEDS: ACETAMINOPHEN 325 MG TABLET PO SCH (21:05)
[2018-03-18] MEDS: SIMVASTATIN 20 MG TABLET PO SCH (21:06)
[2018-03-19] MEDS: FLUTICASONE NASAL SPRAY 50mcg EA NOSTRIL SCH ×3 (00:39→21:38)
[2018-03-19] MEDS: TRAMADOL 50 MG TABLET PO PRN ×3 (06:05→22:26)
[2018-03-19] MEDS: LEVOTHYROXINE 25 MCG TABLET PO SCH (06:05)
[2018-03-19] MEDS: OMEPRAZOLE 20 MG CAPSULE PO SCH (06:05)
[2018-03-19] MEDS: ALBUTEROL 2.5mg/3ml (0.083%) NEB AEROSOL SCH ×2 (07:11→19:32)
[2018-03-19] MEDS: ACETAMINOPHEN 325 MG TABLET PO SCH ×2 (08:42→21:37)
[2018-03-19] MEDS: GlipiZIDE 5 MG TABLET PO SCH ×2 (08:42→17:28)
[2018-03-19] MEDS: ASPIRIN *EC* 81 MG TABLET PO SCH (08:43)
[2018-03-19] MEDS: CALCIUM 500 + VIT D 200 TABLET PO SCH ×2 (08:43→21:39)
[2018-03-19] MEDS: PAROXETINE 20 MG TABLET PO SCH (08:44)
[2018-03-19] MEDS: MULTI-VIT + MINERAL (Opti-gen) TABLET PO SCH (08:44)
[2018-03-19] MEDS: CLOPIDOGREL 75 MG TABLET PO SCH (08:44)
[2018-03-19] MEDS: CALCIUM POLYCARBOPHIL 625 MG TABLET PO SCH (08:44)
[2018-03-19] MEDS: DOCUSATE SODIUM 100 MG CAPSULE PO SCH ×2 (08:44→21:38)
[2018-03-19] MEDS: POLYETHYL GLYCOL 3350 17gm PACKET PO SCH (08:46)
[2018-03-19] MEDS: RANITIDINE 150 MG TABLET PO SCH ×2 (08:46→21:39)
[2018-03-19] MEDS: TOLTERODINE 4 MG PO SCH (08:46)
[2018-03-19] MEDS ORDERED: CHOLECALCIFEROL PO SCH (09:00)
[2018-03-19] MEDS ORDERED: FALL RISK - PHARMACY CONSULT MC ONE (14:11)
--- NOTE | 2018-03-19 15:04 | XRay Report ---
INDICATION: Fever, cough PROCEDURE: CHEST 2-VIEWS UPRIGHT (PA & LAT) Encounter: Initial COMPARISON: December 03, 2017 FINDINGS: The lungs are clear without evidence of focal abnormal airspace opacity. There is no pleural effusion or pneumothorax. The heart size, mediastinal contours and pulmonary vascularity are unchanged. IMPRESSION: Stable chest without acute cardiopulmonary disease. .
--- NOTE | 2018-03-19 15:30 | Consult Note ---
Consult Information - Data of Consult Consult date: 03/19/18 Requesting Physician: Dominick Banda MD Primary Care Provider: Randal Deluna MD - Consult Narrative Reason for consult: medical management History of present illness: Patient is an 82 yo female who is s/p L knee replacement by Dr. More on 03/17/18. She resides at [facility] and Dr. Deluna is her PCP. Chronic medical probs include DM, CAD (s/p stent in 2004), HLD, obesity, and HTN. BS's have been elevated since arriving on rehab. She ran temp of 101.4 last evening. States she is doing well. Feels she has been working hard and making good gains. Hasn't had a BM since surgery despite bowel motivation including MOM, Miralax and colace. No abd pain. Is passing gas. Knee pain is currently 6/ 10. States meds typically help with the pain. States she just took a pain pill and is waiting for it to kick in. Past Medical History Medical History: Medical History (Last Reviewed 01/26/18 @ 12:13 by Markie More MD) Thyroid disease (Chronic) Functional dyspepsia (Chronic) Hypothyroidism (Chronic) GERD (gastroesophageal reflux disease) (Chronic) Dorsalgia (Chronic) Hyperlipidemia (Chronic) Osteoporosis (Chronic) Cataracts, bilateral (Chronic) Allergic rhinitis (Chronic) Type 2 diabetes mellitus (Chronic) Coronary artery disease (Chronic) Primary hypertension (Chronic) Osteoarthritis Surgical History: LT JONATHAN. RT JONATHAN. RT TKA. LT TKA - 03/27 (Dr. More). LAP HERNIA MESH. UMB HERNIA. CHOLECYSTECTOMY. HYSTERECTOMY & BSO. T&A. I&D ABCESS THIGH AGE 11 Family History: Family History (Last Reviewed 01/26/18 @ 12:13 by Markie More MD) Mother Heart attack Heart failure High blood pressure High cholesterol Dad - of pancreatic cancer Family History: As Above - Social History Smoking status: Never smoker Substance use type: does not use Alcohol intake frequency: does not drink Housing: longterm Current occupational status: retired Current residence: [facility] Social history: Dr. Deluna - PCP Dr. Waddell - cardiology Review of Systems All systems PM: 10-point ROS was reviewed, no additional remarkable complaints except (CP and SOA (pt reports this chronic), L knee pain) Medications Home Medications Medication Instructions Recorded Confirmed Type hydroCHLOROthiazide 25 mg PO DAILY #0 12/05/08 03/18/18 History [Hydrochlorothiazide] Fluticasone Nasal [place] [Flonase] 1 spray EA NOSTRIL BID #0 04/26/16 03/18/18 History Niacin [Niacin ER] 500 mg PO HS #0 04/26/16 03/18/18 History Acetaminophen 650 mg PO BID 12/03/17 03/18/18 History Aspirin [Aspirin EC] 81 mg PO DAILY 12/03/17 03/18/18 History Calcium Carbonate/Vitamin D3 1 tab PO BID 12/03/17 03/18/18 History [Calcium 500-Vit D3 200 Tablet] Clopidogrel [Plavix] 75 mg PO DAILY 12/03/17 03/18/18 History Docusate Sodium [Colace] 100 mg PO BID 12/03/17 03/18/18 History Enalapril [Vasotec] 20 mg PO DAILY 12/03/17 03/18/18 History Esomeprazole Magnesium [Nexium] 40 mg PO ACB 12/03/17 03/18/18 History GlipiZIDE [Glucotrol] 5 mg PO BID 12/03/17 03/18/18 History Levothyroxine Tab [Synthroid] 25 mcg PO ACB 12/03/17 03/18/18 History Methylcellulose [Citrucel] 500 mg PO DAILY 12/03/17 03/18/18 History Metoprolol Tartrate [Lopressor] 50 mg PO BID 12/03/17 03/18/18 History PARoxetine HCl [Paxil] 30 mg PO DAILY 12/03/17 03/18/18 History Simvastatin [Zocor] 20 mg PO HS 12/03/17 03/18/18 History Tolterodine LA 4 mg [Detrol LA] 4 mg PO DAILY 12/03/17 03/18/18 History kpzfxvjj-grm-skzon acid 0.4 1 tab PO DAILY 01/26/18 03/18/18 History mg-lycopene 300 mcg-lutein 250 mcg tablet Albuterol/Ipratropium [Duoneb] 1 unit AEROSOL BID 03/10/18 03/18/18 History raNITIdine HCl [Zantac] 150 mg PO BID 03/10/18 03/18/18 History Cholecalciferol (Vitamin D3) 1 cap PO DAILY 03/17/18 03/18/18 History [Vitamin D3] Tramadol [Ultram] 50 mg PO Q6HR 03/17/18 03/18/18 History Milk of Magnesia [Mom] 30 ml PO DAILY udc 03/18/18 03/18/18 Rx PEG 3350 17gm PACKET [Miralax] 17 gm PO DAILY packet 03/18/18 03/18/18 Rx Tramadol [Ultram] 50 mg PO Q6H PRN tab 03/18/18 03/18/18 Rx Allergies Allergy/AdvReac Type Severity Reaction Status Date / Time adhesive Allergy Mild REDNESS Verified 03/18/18 16:38 amoxicillin Allergy Unknown Verified 03/18/18 16:38 clavulanic acid Allergy Unknown Verified 03/18/18 16:38 latex Allergy Unknown Verified 03/18/18 16:38 metformin Allergy Unknown Verified 03/18/18 16:38 ondansetron Allergy Unknown Verified 03/18/18 16:38 codeine AdvReac Mild LIGHT-HEADE Verified 03/18/18 16:38 DNESS Exam Vital Signs: Temperature 99.1 F 03/19/18 12:11 Pulse Rate 105 H 03/19/18 08:00 Respiratory Rate 20 03/19/18 08:00 Blood Pressure 144/74 H 03/19/18 08:00 Pulse Oximetry 96 03/19/18 08:00 Height/Weight/BMI: Height 1.66 m Weight 101.5 kg Body Mass Index 36.6 - Constitutional Present: no acute distress, well nourished, well developed - Routine HEENT Exam Head: Present: normocephalic, atraumatic ENT: Present: mucous membranes moist, oropharynx clear - Routine Neck Exam Present: supple. Absent: lymphadenopathy, thyromegaly - Routine Respiratory Exam Present: CTA bilaterally. Absent: wheezes - Routine Cardiovascular Exam Present: RRR, murmur - Routine Abdominal Exam Present: soft, normoactive bowel sounds. Absent: tenderness, distended - Routine Extremities Exam Present: edema, normal capillary refill - Routine Skin Exam Present: dry, warm - Routine Neurological Exam Present: alert, CN II-XII intact - Routine Psychiatric Exam Present: normal affect, cooperative Results - Labs CBC & Chem 7: 03/19/18 04:19 03/19/18 04:19 Microbiology Results: Microbiology 05/10/18 14:27 Peripheral/Iv Start Blood Culture - Preliminary Culture Initiated - Results Pending 03/19/18 14:30 Peripheral/Iv Start Blood Culture - Preliminary Culture Initiated - Results Pending Assessment and Plan Assessment and Plan: Assessment s/p L TKA by Dr. More on 03/17/18 Post op anemia secondary to blood loss Post op constipation Functional dyspepsia Hypothyroidism GERD Dorsalgia Hyperlipidemia Osteoporosis Cataracts, bilateral Allergic rhinitis Type 2 diabetes mellitus -recent A1C 7.1% Coronary artery disease Primary hypertension Osteoarthritis Plan Agree with admission to IRU with therapies and pain control per Dr. Banda. BS's elevated. Increase Glipizide to 10mg BID from 5mg BID and add SSI. CBC in am to follow hgb and WBC. BP's acceptable - continue to monitor. Mild tachycardia today w/o sxs. Monitor. Give another dose of MOM and if no results by after dinner give Dulcolax supp. Care to return to Dr. Deluna on DC. Appreciate the consult. DVT Prophylaxis: SCD's Resuscitation Status: Do Not Resuscitate - Physician Narrative Physician: Luis Alberto Macias MD Narrative: Date: 03/19/18 Time: 1954 Have independently interviewed & examined pt. Chart reviewed. Case discussed with my PA. Above care plan developed with my supervision; agree with above. Admitted to IRU for restorative therapy following knee replacement. Tired this evening from therapy. [place] she did okay-was able to get in and out of the car. Pain varies, but medications are helpful. Tolerating pain medicines. Not having bowel movements - no stool on IRU or during her acute stay. Not having nausea or ab pain. Appetite stable. Breathing well. Lungs: clear bilaterally CV: regular with murmur AB: soft nt/nd +BS MSE: awake alert appropriate Plan: Agree with admission of patient to IRU to maximize functional status. Encourage continued participation with therapy. Continue to work on bowel function - has received MOM today; prn bowel medication available. Monitor blood sugars-glipizide increased to help. Will need to monitor blood counts. Continue with pain control. Encourage pulmonary toilet. Medically stable for IRU floor activities. Hospital Course Summary Disclaimer: The visit summary below is not to be considered part of the above Progress Note. Hospital Course: 03/19/18 Agree with admission to IRU with therapies and pain control per Dr. Banda. BS's elevated. Increase Glipizide to 10mg BID from 5mg BID and add SSI. CBC in am to follow hgb and WBC. BP's acceptable - continue to monitor. Mild tachycardia today w/o sxs. Monitor. Care to return to Dr. Deluna on DC. Appreciate the consult.
[2018-03-19] MEDS ORDERED: BISACODYL 10 MG SUPPOSITORY RECTALLY PRN (15:56)
--- NOTE | 2018-03-19 16:27 | Orthopedic Consult Note ---
Orthopedic Consultation HPI - Consultation Info Consult Date: 03/19/18 Attending Physician: Dominick Banda MD - History of Present Illness Mrs. Mckenzie is up ambulating with PT when I visit. Patient s/p Left TKA by Dr. More on 03/17/18. Transferred to IRU 03/18/18. Nursing reports that they were concerned about patient's drainage on mepilex. She has bloody drainage in center of Mepilex. Nursing then state she had fever or 101.5 at 2200 last night. Hospitalist was called, and reportedly did not return call. Patient had temp of 101.4 at 0030 this morning as well. Received scheduled tylenol and now has been afebrile. Patient reports body aches, chills this morning. But feels better now. Reports mild productive cough. Denies nausea, shortness of breathe, chest pain, dysuria. Review of Systems - Constitutional Constitutional: Present: as per HPI, chills, fever(s) - Cardiovascular Cardiovascular: Absent: chest pain, palpitations - Respiratory Respiratory: Present: cough - Gastrointestinal Gastrointestinal: Absent: nausea, vomiting - Musculoskeletal Musculoskeletal: Present: as per HPI PFS Patient Stated Medical History Cataracts Yes Other HEENT Yes: nasal polyps, tumor behind OD Coronary Artery Disease Yes: stent 10 years ago Hypertension Yes Other Cardiology Yes: PVD, cleared for surgery per Dr. Waddell Sleep Apnea No: high risk for LEONIDAS Diabetes Mellitus Type 2 Yes Constipation Yes Gastroesophageal Reflux Yes Disease Hx Incontinence Yes Hx Kidney Stones Yes: h/o Osteoarthritis Yes Other Musculoskeletal Yes: chronic lower back pain and numbness in legs Other Infectious Yes: I&D abscess left anterior thigh, age 11 Depression Yes Clinic Medical History (Last Reviewed 01/26/18 @ 12:13 by Markie More MD) Thyroid disease (Chronic Medical) Functional dyspepsia (Chronic Medical) Hypothyroidism (Chronic Medical) GERD (gastroesophageal reflux disease) (Chronic Medical) Dorsalgia (Chronic Medical) Hyperlipidemia (Chronic Medical) Osteoporosis (Chronic Medical) Cataracts, bilateral (Chronic Medical) Allergic rhinitis (Chronic Medical) Type 2 diabetes mellitus (Chronic Medical) Coronary artery disease (Chronic Medical) Primary hypertension (Chronic Medical) Osteoarthritis (Acute Medical) Surgical History: LT JONATHAN. RT JONATHAN. RT TKA. LT TKA - 03/27 (Dr. More). LAP HERNIA MESH. UMB HERNIA. CHOLECYSTECTOMY. HYSTERECTOMY & BSO. T&A. I&D ABCESS THIGH AGE 11 Family History: Family History (Last Reviewed 01/26/18 @ 12:13 by Markie More MD) Mother Heart attack Heart failure High blood pressure High cholesterol - Social History Smoking status: Never smoker Packs per day: 2.5 (Smoked from age 38 to 42, 2-3 PPD) Packs-years: 10 Substance use type: does not use Alcohol intake: former Alcohol intake frequency: does not drink Housing: [facility] Household members: other Current occupational status: retired Current residence: [place] Medications Home Medications Medication Instructions Recorded Confirmed Type hydroCHLOROthiazide 25 mg PO DAILY #0 12/05/08 03/18/18 History [Hydrochlorothiazide] Fluticasone Nasal [place] [Flonase] 1 spray EA NOSTRIL BID #0 04/26/16 03/18/18 History Niacin [Niacin ER] 500 mg PO HS #0 04/26/16 03/18/18 History Acetaminophen 650 mg PO BID 12/03/17 03/18/18 History Aspirin [Aspirin EC] 81 mg PO DAILY 12/03/17 03/18/18 History Calcium Carbonate/Vitamin D3 1 tab PO BID 12/03/17 03/18/18 History [Calcium 500-Vit D3 200 Tablet] Clopidogrel [Plavix] 75 mg PO DAILY 12/03/17 03/18/18 History Docusate Sodium [Colace] 100 mg PO BID 12/03/17 03/18/18 History Enalapril [Vasotec] 20 mg PO DAILY 12/03/17 03/18/18 History Esomeprazole Magnesium [Nexium] 40 mg PO ACB 12/03/17 03/18/18 History GlipiZIDE [Glucotrol] 5 mg PO BID 12/03/17 03/18/18 History Levothyroxine Tab [Synthroid] 25 mcg PO ACB 12/03/17 03/18/18 History Methylcellulose [Citrucel] 500 mg PO DAILY 12/03/17 03/18/18 History Metoprolol Tartrate [Lopressor] 50 mg PO BID 12/03/17 03/18/18 History PARoxetine HCl [Paxil] 30 mg PO DAILY 12/03/17 03/18/18 History Simvastatin [Zocor] 20 mg PO HS 12/03/17 03/18/18 History Tolterodine LA 4 mg [Detrol LA] 4 mg PO DAILY 12/03/17 03/18/18 History ewhnzbux-ahh-nxsjt acid 0.4 1 tab PO DAILY 01/26/18 03/18/18 History mg-lycopene 300 mcg-lutein 250 mcg tablet Albuterol/Ipratropium [Duoneb] 1 unit AEROSOL BID 03/10/18 03/18/18 History raNITIdine HCl [Zantac] 150 mg PO BID 03/10/18 03/18/18 History Cholecalciferol (Vitamin D3) 1 cap PO DAILY 03/17/18 03/18/18 History [Vitamin D3] Tramadol [Ultram] 50 mg PO Q6HR 03/17/18 03/18/18 History Milk of Magnesia [Mom] 30 ml PO DAILY udc 03/18/18 03/18/18 Rx PEG 3350 17gm PACKET [Miralax] 17 gm PO DAILY packet 03/18/18 03/18/18 Rx Tramadol [Ultram] 50 mg PO Q6H PRN tab 03/18/18 03/18/18 Rx Allergies Allergy/AdvReac Type Severity Reaction Status Date / Time adhesive Allergy Mild REDNESS Verified 03/18/18 16:38 amoxicillin Allergy Unknown Verified 03/18/18 16:38 clavulanic acid Allergy Unknown Verified 03/18/18 16:38 latex Allergy Unknown Verified 03/18/18 16:38 metformin Allergy Unknown Verified 03/18/18 16:38 ondansetron Allergy Unknown Verified 03/18/18 16:38 codeine AdvReac Mild LIGHT-HEADE Verified 03/18/18 16:38 DNESS Exam - Constitutional Vital Signs: Temperature 99.0 F 03/19/18 15:55 Pulse Rate 93 03/19/18 15:55 Respiratory Rate 16 03/19/18 15:55 Blood Pressure 146/74 H 03/19/18 15:55 Pulse Oximetry 93 03/19/18 15:55 General: cooperative, no acute distress, well developed, well groomed Nutritional Appearance: well nourished Orientation: alert, oriented to person - RLE Postoperative Appearance: surgical incision well healed - LLE Postoperative Appearance: normal postoperative swelling, knee alignment neutral , neurovascullary intact to extremities Skin: ecchymosis, other (mepliex dressing left knee with central bloody drainage ) Neurological: no deficits, normal to light touch Vascular: dorsalis pedis pulse within normal limits - Respiratory Respiratory Exam: non-labored - Cardiac Cardiovascular exam: pedal pulses intact - Labs Result Diagrams: 03/19/18 04:19 03/19/18 04:19 Abnormal lab results 03/19/18 03/19/18 03/19/18 Range/Units 04:19 04:19 15:17 RBC 3.01 L (4.00-5.20) M/MM3 Hgb 8.5 L (12-16) GM/DL Hct 26.2 L (36-46) % Neut % (Auto) 67.8 H (33-66) % Lymph % (Auto) 15.6 L (23-45) % Bailey % (Auto) 15.9 H (0-9.0) % Bailey # (Auto) 1.2 H (0-0.8) T/MM3 BUN 18.0 H (7-17) MG/DL Glucose 202 H (65-110) MG/DL Urine Glucose (UA) 2+ A (NEGATIVE) H & H 03/19/18 Range/Units 04:19 Hgb 8.5 L (12-16) GM/DL Hct 26.2 L (36-46) % Impression and Recommendation (1) Status post total knee replacement, left Current visit: Yes Status: Acute (2) Fever Current visit: Yes Status: Acute Discussed with Dr. Banda and hospitalist. With fever >101.4, body aches/chills will proceed with chest xray, UA, Blood cultures x2. Patient's knee with expected post-operative exam. May be post-operative inflammatory response, and will continue to monitor. Encourage IS q2hr while awake WBC 7.5, CBC will be repeated in am. Continue PT/OT for mobilization Hospital Course Summary Disclaimer: The visit summary below is not to be considered part of the above Progress Note. Hospital Course: 03/19/18 Agree with admission to IRU with therapies and pain control per Dr. Banda. BS's elevated. Increase Glipizide to 10mg BID from 5mg BID and add SSI. CBC in am to follow hgb and WBC. BP's acceptable - continue to monitor. Mild tachycardia today w/o sxs. Monitor. Care to return to Dr. Deluna on DC. Appreciate the consult.
[2018-03-19] MEDS: INSULIN ASPART 100unit/ml INJECTION SQ PRN (21:34)
[2018-03-19] MEDS: SIMVASTATIN 20 MG TABLET PO SCH (21:39)
[2018-03-19] MEDS: NIACIN ER 500 MG TABLET PO SCH (22:57)
[2018-03-20] MEDS: LEVOTHYROXINE 25 MCG TABLET PO SCH (06:15)
[2018-03-20] MEDS: OMEPRAZOLE 20 MG CAPSULE PO SCH (06:15)
[2018-03-20] MEDS: TRAMADOL 50 MG TABLET PO PRN ×3 (06:19→18:00)
[2018-03-20] MEDS: ASPIRIN *EC* 81 MG TABLET PO SCH (09:11)
[2018-03-20] MEDS: ACETAMINOPHEN 325 MG TABLET PO SCH ×2 (09:11→21:53)
[2018-03-20] MEDS: CALCIUM POLYCARBOPHIL 625 MG TABLET PO SCH (09:12)
[2018-03-20] MEDS: RANITIDINE 150 MG TABLET PO SCH ×2 (09:12→21:53)
[2018-03-20] MEDS: MULTI-VIT + MINERAL (Opti-gen) TABLET PO SCH (09:12)
[2018-03-20] MEDS: PAROXETINE 20 MG TABLET PO SCH (09:12)
[2018-03-20] MEDS: GlipiZIDE 5 MG TABLET PO SCH ×2 (09:13→17:59)
[2018-03-20] MEDS: CLOPIDOGREL 75 MG TABLET PO SCH (09:13)
[2018-03-20] MEDS: CALCIUM 500 + VIT D 200 TABLET PO SCH ×2 (09:13→21:53)
[2018-03-20] MEDS: FLUTICASONE NASAL SPRAY 50mcg EA NOSTRIL SCH ×2 (09:14→21:52)
[2018-03-20] MEDS: DOCUSATE SODIUM 100 MG CAPSULE PO SCH ×2 (09:14→21:53)
[2018-03-20] MEDS: TOLTERODINE 4 MG PO SCH (09:15)
[2018-03-20] MEDS: POLYETHYL GLYCOL 3350 17gm PACKET PO SCH (09:15)
[2018-03-20] MEDS: INSULIN ASPART 100unit/ml INJECTION SQ PRN ×3 (11:06→21:52)
--- NOTE | 2018-03-20 11:44 | IRU Progress Note ---
- Subjective/Serverity of Illness Date: 03/20/18 Raven was interviewed and examined in her room on inpatient rehabilitation. She is cooperative with therapy but is having more pain in the left knee/left lateral calf area. Despite that she is cooperative. It is noted that her hemoglobin has dropped to 7.8. She is asymptomatic. She had run a fever the last couple of nights. Initially was over 101 last night was about 100.5. She was evaluated yesterday by the hospitalist service as well as orthopedics. No etiology of her fever has been identified. I again asked her today about any symptoms relating to infection and she denies any. She does not have a cough. There is no evidence of upper respiratory infection. She is not terribly short of breath. There is no burning on urination. Chest x- ray and urinalysis were clear. Blood cultures 2 have been negative thus far. No evidence of knee infection and it seems it would be a bit early for that anyway. She is getting some bloody drainage from the left knee wound. Management per her orthopedist in this regard. Discussed with therapy this morning. She is making slow progress. Pain is a limitation. Update on medical issues were actively monitoring and managing as follows: 1. s/p left total knee arthroplasty with increased blood drainage. Wound management per orthopedics. 2. Diabetes Mellitus type II, recently requiring insulin and with elevated blood sugars. Her blood sugars remain high at over 200. Management per hospitalists. 3. Systolic heart murmur consistent with aortic stenosis. Unchanged. 4. Benign essential hypertension: Until today her blood pressures have been elevated. They are improved today. Continue to monitor. 5. Vertigo:Denies current symptoms. 6. Post op fever: Please see above discussion. Etiology not clear. Could be due to hematoma/blood. No evidence of active infection anywhere. 7. Acute blood loss anemia: Hemoglobin has dropped to about 7.8. She is asymptomatic and this will be observed. Exam Vital Signs: Temperature 98.7 F 03/20/18 08:00 Pulse Rate 99 03/20/18 08:00 Respiratory Rate 16 03/20/18 08:00 Blood Pressure 135/67 03/20/18 08:00 Pulse Oximetry 96 03/20/18 08:00 Height/Weight/BMI: Height 1.66 m Weight 101.5 kg Body Mass Index 36.6 - Constitutional Present: mild distress (left lateral calf slightly tender), well nourished, well developed, cooperative - Routine HEENT Exam Eye: Present: EOMI ENT: Present: mucous membranes moist, oropharynx clear - Routine Neck Exam Present: supple - Routine Respiratory Exam Present: CTA bilaterally. Absent: wheezes - Routine Cardiovascular Exam Present: RRR, S1, S2. Absent: murmur - Routine Abdominal Exam Present: soft, normoactive bowel sounds, non distended. Absent: tenderness - Routine Extremities Exam Present: edema (1+ left leg. ), normal capillary refill Comments: Left lateral calf is a bit tender to palpate. No mass present. No "cord" palpated. No redness and no warmth. Right lateral calf is similarly tender. - Routine Skin Exam Present: dry, warm, ecchymosis (left lower ext) - Routine Neurological Exam Present: alert, oriented X3, CN II-XII intact - Routine Psychiatric Exam Present: normal affect, anxious Results IRU - Labs Labs: Have reviewed labs, chest x-ray, and other providers notes. IRU A/P (1) Status post total knee replacement, left Current visit: Yes Status: Acute Patient per dismissed with therapy. Some discomfort noted. Management of wound/ bleeding per orthopedics. (2) Type 2 diabetes mellitus Qualifiers: Diabetes mellitus fci insulin use: without truck terminal manager use Diabetes mellitus complication status: without complication Qualified Code(s): E11.9 - Type 2 diabetes mellitus without complications Current visit: No Status: Chronic Blood sugars are running a bit high at over 200. Management per hospitalist service. (3) Coronary artery disease Qualifiers: Coronary Disease-Associated Artery/Lesion type: [place] artery [place] vs. transplanted heart: [place] heart Associated angina: without angina Qualified Code(s): I25.10 - Atherosclerotic heart disease of [place] coronary artery without angina pectoris Current visit: No Status: Chronic Denies chest pains. (4) Vertigo Current visit: Yes Status: Acute (5) Systolic murmur Current visit: Yes Status: Chronic (6) Hypertension Qualifiers: Hypertension type: essential hypertension Qualified Code(s): I10 - Essential (primary) hypertension Current visit: No Status: Chronic Blood pressures have been running elevated but are a bit improved at present. Continue to monitor. (7) Acute blood loss anemia Current visit: Yes Status: Acute Hemoglobin has dropped to 7.8. Likely this is from the left knee situation. She is asymptomatic. She is not lightheaded. Continue to monitor for the time being. (8) Fever Qualifiers: Fever type: post-procedural Qualified Code(s): R50.82 - Postprocedural fever Current visit: Yes Status: Acute Etiology of her fever is not clear. She was over 101 two nights ago and then 100.5 last night. Extensive workup was undertaken all of which is negative. Clinically she does not have evidence of a source of infection. Fever could be due to atelectasis versus hematoma/bleeding DVT Prophylaxis: SCD's Resuscitation Status: Do Not Resuscitate - Course Hospital Course: Dominick Banda MD: 03/20/18 11:50 Patient participates with therapy. Fever noted and negative workup. Acute blood loss anemia present which is asymptomatic. - Interventions to Obtain Goals PT Treatment Plan: Balance/Proprioception, Functional Activities, Gait Training , Patient/Family Education, Therapeutic Exercise OT Treatment Plan: ADL (Basic Care), Balance Training, Pt./Family Education, Ther. Exercise for ADL Goals Progress/Modifications: This patient has become medically complex with her diabetes, acute blood loss anemia, hypertension and fever. Extensive workup has been undertaken regarding the temperature and no etiology is found. I again performed a review of systems on her today and could not find evidence clinically of any source of infection except for the presence of recent surgery with possible atelectasis as well as hematoma. Nevertheless she seems to be stable from that standpoint. Her blood sugars remain elevated. Management per hospitalists in this regard. She is participating with therapy. There is discomfort in the left leg as anticipated.Please note that the patient's individual plan of care was developed and documented today, requiring review of therapy notes, medical conditions and anticipated functional recovery. This required additional medical decision making with regard to interaction of the patient's medical issues with the anticipated functional recovery. Please see separate document
--- NOTE | 2018-03-20 11:55 | IRU Plan of Care ---
[facility] Overall Plan of Care - Date Date: 03/20/18 - Patient Impairments (1) Status post total knee replacement, left Code(s): Z96.652 - Presence of left artificial knee joint Status: Acute Classification: Present on IRF Admission, IRF Tx That Should Address Diagnosis, Diagnosis Requiring Medical Follow Up (2) Type 2 diabetes mellitus Qualifiers: Diabetes mellitus terminal operations manager insulin use: without care home use Diabetes mellitus complication status: without complication Qualified Code(s): E11.9 - Type 2 diabetes mellitus without complications Code(s): E11.9 - Type 2 diabetes mellitus without complications Status: Chronic Classification: Present on IRF Admission, IRF Tx That Should Address Diagnosis, Diagnosis Requiring Medical Follow Up (3) Coronary artery disease Qualifiers: Coronary Disease-Associated Artery/Lesion type: [place] artery [place] vs. transplanted heart: [place] heart Associated angina: without angina Qualified Code(s): I25.10 - Atherosclerotic heart disease of [place] coronary artery without angina pectoris Code(s): I25.10 - Atherosclerotic heart disease of [place] coronary artery without angina pectoris Status: Chronic Classification: Present on IRF Admission, Diagnosis Requiring Medical Follow Up (4) Vertigo Code(s): R42 - Dizziness and giddiness Status: Acute Classification: Present on IRF Admission, IRF Tx That Should Address Diagnosis, Diagnosis Requiring Medical Follow Up (5) Systolic murmur Code(s): R01.1 - Cardiac murmur, unspecified Status: Chronic Classification: Present on IRF Admission, Diagnosis Requiring Medical Follow Up (6) Hypertension Qualifiers: Hypertension type: essential hypertension Qualified Code(s): I10 - Essential (primary) hypertension Code(s): I10 - Essential (primary) hypertension Status: Chronic Classification: Present on IRF Admission, IRF Tx That Should Address Diagnosis, Diagnosis Requiring Medical Follow Up (7) Acute blood loss anemia Code(s): D62 - Acute posthemorrhagic anemia Status: Acute Classification: Present on IRF Admission, IRF Tx That Should Address Diagnosis, Diagnosis Requiring Medical Follow Up (8) Fever Qualifiers: Fever type: post-procedural Qualified Code(s): R50.82 - Postprocedural fever Code(s): R50.9 - Fever, unspecified Status: Acute Classification: IRF Tx That Should Address Diagnosis - Relevant Changes Relevant Changes: No Reviewed: I have reviewed the patient's information and concur with the finding and results of the pre-admission screen. Certification: I certify the patient for rehabilitation. - Medical Prognosis Medical Prognosis: Good Vital Signs: Last Vital Signs Temp 98.7 F 03/20/18 08:00 Pulse 99 03/20/18 08:00 Resp 16 03/20/18 08:00 BP 135/67 03/20/18 08:00 Pulse Ox 96 03/20/18 08:00 - Anticipated Interventions Anticipated Interventions: The patient requires inpatient IRF care for PT, OT, and/or ST for residuals remaining from left total knee replacement resulting in muscular weakness and strength deficits. An individualized overall plan of care has been developed after careful review of the patient's preadmission screening, post admission physician evaluation and assessments of all therapy disciplines and/or other pertinent clinicians involved in treating the patient. This indicates medical necessity and rehabilitation necessity have been established through a thorough review of all available medical information. ROM Deficit: Left Lower Extremity Strength Deficits: Left Lower Extremity - Current Functional Status Failed Alternative Therapy: Arrived from Acute Care Patient Requires: The patient requires oversight by rehabilitation physician to manage their rehabilitation treatment plan and multidisciplinary approach to care that can only be provided in an IRF and requires a multidisciplinary approach to care, provided by professional PTs, OTs, STs, rehabilitation nurses, and may require STs, dieticians, and RTS. This is not available in lesser levels of care. Physical Therapy Minutes: 90 Occupational Therapy Minutes: 90 Therapy: The patient is to receive therapy at least 5 days a week. - Anticipated LOS/Outcomes Anticipated Functional Outcome: It is anticipated the patient will be able to return to her long-term care room. She will continue to require assistance with IADLs and some assistance with ADLs although be able to perform most ADLs at modified independent level or better. She'll be able to ambulate with a front-wheeled walker safely and have adequate control of her pain. It is anticipated that her hemoglobin will be stable and she will be afebrile at the time of dismissal. Anticipated Length of Stay (days): 10 Anticipated DC Destination: [facility]ility Home Safety Plan: The patient will be provided with the development of a Home Safety Plan for return to a home or home-like environment and and to ensure safety post discharge. - Plan to Avoid Complications Barriers to Attaining Goals: Weakness, Endurance, Pain Control Plan to Avoid Complications: The patient cannot receive this care in a lesser intensive setting such as Assisted or Outpatient Therapy due to the patient requiring the following : This medically complex patient requires close monitoring of her pain and adequate provision of pain medications, monitoring of blood sugars and blood pressures. In addition she has evidence of some bleeding from the left knee wound and this needs to be monitored carefully by orthopedics. She requires close monitoring of her hemoglobin as she has experienced acute blood loss anemia. In view of these multiple medical problems she requires a multidisciplinary approach with PT and OT and medical supervision.
[2018-03-20] MEDS: ALBUTEROL 2.5mg/3ml (0.083%) NEB AEROSOL SCH ×2 (13:23→19:00)
--- NOTE | 2018-03-20 14:44 | Orthopedic Progress Note ---
Date: Date: 03/20/18 Time: 1441 Subjective/Severity of Illness: Raven is eating lunch when I visit today. She states that her knee is painful with movement. She has been ambulating with walker and assistance, per notes progress has been slow. Patient has had bloody drainage on mepilex dressing, with minimal increase today , but overall stable. She again had fever of 100.5 last night. Though she denies any symptoms today of cough, shortness of breathe, chills. Chest xray negative yesterday along with UA. Blood cultures have been negative as well. Orthopedic Exam Vital signs: Temperature 98.7 F 03/20/18 08:00 Pulse Rate 99 03/20/18 08:00 Respiratory Rate 16 03/20/18 08:00 Blood Pressure 135/67 03/20/18 08:00 Pulse Oximetry 96 03/20/18 08:00 - Constitutional General Appearance: Present: alert, no acute distress, well developed, well nourished - Respiratory Exam Present: non-labored - Cardiovascular Exam Present: pedal pulses intact - Extremities Exam Present: edema (1+ left leg. ), normal capillary refill - Dressing Dressing: bloody drainage Comments: mepilex dressing left knee - Integumentary Exam Present: other (ecchymosis and edema of left knee and distally to mid anterior leg and calf.) - Neurological Exam Present: intact to light touch, no deficits - Labs Result Diagrams: 03/20/18 05:00 03/19/18 04:19 Abnormal lab results 03/19/18 03/20/18 Range/Units 15:17 05:00 RBC 2.80 L (4.00-5.20) M/MM3 Hgb 7.8 L (12-16) GM/DL Hct 24.6 L (36-46) % Plt Count 123 L (130-400) T/MM3 Lymph % (Auto) 19.2 L (23-45) % Tift % (Auto) 14.1 H (0-9.0) % Tift # (Auto) 0.9 H (0-0.8) T/MM3 Urine Glucose (UA) 2+ A (NEGATIVE) H & H 03/19/18 03/20/18 Range/Units 04:19 05:00 Hgb 8.5 L 7.8 L (12-16) GM/DL Hct 26.2 L 24.6 L (36-46) % Orthopedic Assessment and Plan (1) Status post total knee replacement, left Status: Acute Assessment and Plan: Continue to monitor mepilex drainage. Minimally increased today on dressing. Appears stable. Patient is on plavix and ASA for anticoagulation therapy due to CAD. (2) Fever Status: Acute Qualifiers: Fever type: post-procedural Qualified Code(s): R50.82 - Postprocedural fever Assessment and Plan: Reviewed Dr. Banda and hospitalist notes, agree patient appears stable. No obvious sign of infection, and likely due to post-op inflammatory response. Hospital Course Summary Disclaimer: The visit summary below is not to be considered part of the above Progress Note. Hospital Course: 03/19/18 Agree with admission to IRU with therapies and pain control per Dr. Banda. BS's elevated. Increase Glipizide to 10mg BID from 5mg BID and add SSI. CBC in am to follow hgb and WBC. BP's acceptable - continue to monitor. Mild tachycardia today w/o sxs. Monitor. Care to return to Dr. Deluna on DC. Appreciate the consult.
--- NOTE | 2018-03-20 16:00 | Progress Note ---
- Date 03/20/18 Subjective: Patient is seen during therapy. She reports she is having pain, but she is willing to cooperate with therapy. She's had some pain in the calf, but Dr. Banda is aware and Ortho is seeing her as well. She's run some fevers the past few nights. She has had no cough, shortness of breath, burning on urination, or other signs of infection. She did not have an elevated white count today and blood cultures are negative thus far. It is noted that her hemoglobin has dropped to 7.8. She is asymptomatic. She reports having 2 good bowel movements this morning. She ended up having 2 doses of milk of magnesia and Dulcolax suppository yesterday. Objective Vital signs: Temperature 98.7 F 03/20/18 08:00 Pulse Rate 99 03/20/18 08:00 Respiratory Rate 16 03/20/18 08:00 Blood Pressure 135/67 03/20/18 08:00 Pulse Oximetry 96 03/20/18 08:00 Height/Weight/BMI: Height 1.66 m Weight 101.5 kg Body Mass Index 36.6 - Constitutional Present: no acute distress, well nourished, well developed - Routine HEENT Exam Head: Present: normocephalic, atraumatic - Routine Respiratory Exam Present: CTA bilaterally. Absent: wheezes - Routine Cardiovascular Exam Present: RRR, murmur - Routine Abdominal Exam Present: soft, non distended, non tender - Routine Extremities Exam Present: edema (b/l. L>R as would be expected. Large amt of bruising to LLE. Dressing over wound.), normal capillary refill - Routine Skin Exam Present: dry, warm - Routine Neurological Exam Present: alert, oriented X3 - Routine Lymphatic Exam Lymphatic: Absent: adenopathy - Routine Psychiatric Exam Present: normal affect, cooperative Results - Labs CBC & Chem 7: 03/20/18 05:00 03/19/18 04:19 Microbiology Results: Microbiology 03/19/18 14:30 Peripheral/Iv Start Blood Culture - Preliminary No Growth After 1 Day 03/19/18 14:27 Peripheral/Iv Start Blood Culture - Preliminary No Growth After 1 Day Assessment and Plan Assessment and Plan: Assessment s/p L TKA by Dr. More on 03/17/18 Post op anemia secondary to blood loss Post op fever Functional dyspepsia Hypothyroidism GERD Dorsalgia Hyperlipidemia Osteoporosis Cataracts, bilateral Allergic rhinitis Type 2 diabetes mellitus -recent A1C 7.1% Coronary artery disease Primary hypertension Osteoarthritis Plan Asymptomatic with hemoglobin of 7.8. Repeat CBC tomorrow. Continue bowel motivation. Continue to monitor temperature and blood counts. BS's reviewed. Glipizide increased yesterday. - Physician Narrative Narrative: Date: 03/20/18 Time: 1557 Hospital Course Summary Disclaimer: The visit summary below is not to be considered part of the above Progress Note. Hospital Course: 03/19/18 Agree with admission to IRU with therapies and pain control per Dr. Banda. BS's elevated. Increase Glipizide to 10mg BID from 5mg BID and add SSI. CBC in am to follow hgb and WBC. BP's acceptable - continue to monitor. Mild tachycardia today w/o sxs. Monitor. Care to return to Dr. Deluna on DC. Appreciate the consult. 03/20/18 Asymptomatic with hemoglobin of 7.8. Repeat CBC tomorrow. Continue bowel motivation. Continue to monitor temperature and blood counts.
[2018-03-20] MEDS: NIACIN ER 500 MG TABLET PO SCH (21:52)
[2018-03-20] MEDS: SIMVASTATIN 20 MG TABLET PO SCH (21:53)
[2018-03-21] MEDS: TRAMADOL 50 MG TABLET PO PRN (06:29)
[2018-03-21] MEDS: LEVOTHYROXINE 25 MCG TABLET PO SCH (06:29)
[2018-03-21] MEDS: OMEPRAZOLE 20 MG CAPSULE PO SCH (06:30)
[2018-03-21] MEDS: GlipiZIDE 5 MG TABLET PO SCH ×2 (08:22→17:16)
[2018-03-21] MEDS: TOLTERODINE 4 MG PO SCH (09:03)
[2018-03-21] MEDS: CLOPIDOGREL 75 MG TABLET PO SCH (09:03)
[2018-03-21] MEDS: CALCIUM POLYCARBOPHIL 625 MG TABLET PO SCH (09:03)
[2018-03-21] MEDS: ASPIRIN *EC* 81 MG TABLET PO SCH (09:04)
[2018-03-21] MEDS: PAROXETINE 20 MG TABLET PO SCH (09:04)
[2018-03-21] MEDS: RANITIDINE 150 MG TABLET PO SCH ×2 (09:06→21:13)
[2018-03-21] MEDS: POLYETHYL GLYCOL 3350 17gm PACKET PO SCH (09:06)
[2018-03-21] MEDS: MULTI-VIT + MINERAL (Opti-gen) TABLET PO SCH (09:06)
[2018-03-21] MEDS: CALCIUM 500 + VIT D 200 TABLET PO SCH ×2 (09:06→21:13)
[2018-03-21] MEDS: DOCUSATE SODIUM 100 MG CAPSULE PO SCH ×2 (09:08→21:13)
[2018-03-21] MEDS: ACETAMINOPHEN 325 MG TABLET PO SCH ×2 (09:08→21:13)
[2018-03-21] MEDS: FLUTICASONE NASAL SPRAY 50mcg EA NOSTRIL SCH ×2 (10:27→21:12)
[2018-03-21] MEDS: ALBUTEROL 2.5mg/3ml (0.083%) NEB AEROSOL SCH ×2 (10:41→21:13)
[2018-03-21] MEDS: INSULIN ASPART 100unit/ml INJECTION SQ PRN ×3 (11:58→21:14)
[2018-03-21] MEDS: SIMVASTATIN 20 MG TABLET PO SCH (21:12)
[2018-03-21] MEDS: NIACIN ER 500 MG TABLET PO SCH (21:12)
[2018-03-22] MEDS: LEVOTHYROXINE 25 MCG TABLET PO SCH (06:24)
[2018-03-22] MEDS: OMEPRAZOLE 20 MG CAPSULE PO SCH (06:25)
[2018-03-22] MEDS: INSULIN ASPART 100unit/ml INJECTION SQ PRN ×3 (06:36→20:34)
[2018-03-22] MEDS: FLUTICASONE NASAL SPRAY 50mcg EA NOSTRIL SCH ×2 (09:06→20:45)
[2018-03-22] MEDS: POLYETHYL GLYCOL 3350 17gm PACKET PO SCH (09:06)
[2018-03-22] MEDS: ASPIRIN *EC* 81 MG TABLET PO SCH (09:07)
[2018-03-22] MEDS: CLOPIDOGREL 75 MG TABLET PO SCH (09:07)
[2018-03-22] MEDS: TOLTERODINE 4 MG PO SCH (09:07)
[2018-03-22] MEDS: MULTI-VIT + MINERAL (Opti-gen) TABLET PO SCH (09:07)
[2018-03-22] MEDS: PAROXETINE 20 MG TABLET PO SCH (09:07)
[2018-03-22] MEDS: GlipiZIDE 5 MG TABLET PO SCH ×2 (09:07→17:25)
[2018-03-22] MEDS: CALCIUM 500 + VIT D 200 TABLET PO SCH ×2 (09:08→20:37)
[2018-03-22] MEDS: RANITIDINE 150 MG TABLET PO SCH ×2 (09:09→20:37)
[2018-03-22] MEDS: ACETAMINOPHEN 325 MG TABLET PO SCH ×2 (09:10→20:36)
[2018-03-22] MEDS: DOCUSATE SODIUM 100 MG CAPSULE PO SCH ×2 (09:10→21:59)
[2018-03-22] MEDS: CALCIUM POLYCARBOPHIL 625 MG TABLET PO SCH (11:56)
--- NOTE | 2018-03-22 16:26 | Orthopedic Progress Note ---
Date: Date: 03/22/18 Time: 1622 Subjective/Severity of Illness: Raven is eating lunch when I visit today. She states that her knee is less painful to movement. She has been ambulating with walker and assistance, per notes progress has been slow. Patient has had bloody drainage on mepilex dressing; but stable as compared to yesterday. She has been afebrile. She states she does get short of breath with ambulation and has had some calf pain. Chest xray negative yesterday along with UA. Blood cultures have been negative as well. Orthopedic Exam Vital signs: Temperature 98.7 F 03/20/18 08:00 Pulse Rate 99 03/20/18 08:00 Respiratory Rate 16 03/20/18 08:00 Blood Pressure 135/67 03/20/18 08:00 Pulse Oximetry 96 03/20/18 08:00 - Constitutional General Appearance: Present: alert, no acute distress, well developed, well nourished - Respiratory Exam Present: non-labored - Cardiovascular Exam Present: pedal pulses intact Comments: post tib pulses present but 1/3. - Abdominal Exam Absent: tenderness - Extremities Exam Present: edema (b/l. L>R. Skin is now "glassy" and calf is TTP. Large amt of bruising to LLE. Dressing over wound.), normal capillary refill, calf tenderness - Dressing Dressing: bloody drainage - Integumentary Exam Present: pink, warm, dry, other (ecchymosis and edema of left knee and distally to mid anterior leg and calf.) - Lymphatic Lymphatic: Absent: adenopathy - Neurological Exam Present: intact to light touch, no deficits - Psychiatric Exam Present: alert - Labs Result Diagrams: 03/21/18 04:55 03/21/18 04:55 H & H 03/19/18 03/20/18 03/21/18 Range/Units 04:19 05:00 04:55 Hgb 8.5 L 7.8 L 7.8 L (12-16) GM/DL Hct 26.2 L 24.6 L 24.6 L (36-46) % - Diagnostic results Other Results: other (LLE venous doppler performed and was negative for clot.) Orthopedic Assessment and Plan (1) Status post total knee replacement, left Status: Acute Assessment and Plan: Continue to monitor mepilex drainage. Minimally increased today on dressing. Appears stable. Patient is on plavix and ASA for anticoagulation therapy due to CAD. (2) Fever Status: Acute Qualifiers: Fever type: post-procedural Qualified Code(s): R50.82 - Postprocedural fever Assessment and Plan: Reviewed Dr. Banda and hospitalist notes, agree patient appears stable. No obvious sign of infection, and likely due to post-op inflammatory response. - Additional Diagnoses Diabetes: resume oral medications, continue with sliding scale insulin, other ( Will continue to closely monitor BG today. ) Hospital Course Summary Disclaimer: The visit summary below is not to be considered part of the above Progress Note. Hospital Course: 03/19/18 Agree with admission to IRU with therapies and pain control per Dr. Banda. BS's elevated. Increase Glipizide to 10mg BID from 5mg BID and add SSI. CBC in am to follow hgb and WBC. BP's acceptable - continue to monitor. Mild tachycardia today w/o sxs. Monitor. Care to return to Dr. Deluna on DC. Appreciate the consult. 03/20/18 Asymptomatic with hemoglobin of 7.8. Repeat CBC tomorrow. Continue bowel motivation. Continue to monitor temperature and blood counts.
[2018-03-22] MEDS: TRAMADOL 50 MG TABLET PO PRN (19:15)
[2018-03-22] MEDS: ALBUTEROL 2.5mg/3ml (0.083%) NEB AEROSOL SCH ×2 (20:11→20:18)
[2018-03-22] MEDS: NIACIN ER 500 MG TABLET PO SCH (20:36)
[2018-03-22] MEDS: SIMVASTATIN 20 MG TABLET PO SCH (20:37)
[2018-03-23] MEDS: TRAMADOL 50 MG TABLET PO PRN ×2 (00:59→07:11)
[2018-03-23] MEDS: LEVOTHYROXINE 25 MCG TABLET PO SCH ×2 (04:57→05:31)
[2018-03-23] MEDS: OMEPRAZOLE 20 MG CAPSULE PO SCH ×2 (04:57→05:31)
[2018-03-23] MEDS: ALBUTEROL 2.5mg/3ml (0.083%) NEB AEROSOL SCH ×2 (06:37→20:16)
[2018-03-23] MEDS: INSULIN ASPART 100unit/ml INJECTION SQ PRN ×4 (07:10→20:42)
--- NOTE | 2018-03-23 07:27 | Ultrasound Report ---
Indication: Left leg pain and swelling, recent knee replacement surgery PROCEDURE: US venous doppler LE LT: Encounter: Initial Comparison: None Technique: Color Doppler duplex and grayscale sonographic imaging of the left lower extremity was performed. Findings: There is no evidence for acute deep venous thrombosis in the left thigh. Specifically, serial graded compression was performed from the inguinal ligament to the popliteal bifurcation, on the left thigh, demonstrating appropriate compressibility of the deep venous system. In addition, color and pulsed Doppler demonstrate appropriate spontaneous flow, variation with respiration, and augmentation with calf compression. At the ankle, normal flow is identified in the posterior tibial veins; these vessels are also normal in caliber. Impression: No evidence of acute DVT in the left lower limb. There is a preliminary report by virtual radi[facility]. .
[2018-03-23] MEDS: GlipiZIDE 5 MG TABLET PO SCH ×2 (08:38→17:27)
[2018-03-23] MEDS: ACETAMINOPHEN 325 MG TABLET PO SCH ×2 (08:39→20:43)
[2018-03-23] MEDS: CALCIUM 500 + VIT D 200 TABLET PO SCH ×2 (08:40→20:43)
[2018-03-23] MEDS: CLOPIDOGREL 75 MG TABLET PO SCH (08:40)
[2018-03-23] MEDS: DOCUSATE SODIUM 100 MG CAPSULE PO SCH ×2 (08:40→20:43)
[2018-03-23] MEDS: ASPIRIN *EC* 81 MG TABLET PO SCH (08:40)
[2018-03-23] MEDS: CALCIUM POLYCARBOPHIL 625 MG TABLET PO SCH (08:40)
[2018-03-23] MEDS: MULTI-VIT + MINERAL (Opti-gen) TABLET PO SCH (08:41)
[2018-03-23] MEDS: RANITIDINE 150 MG TABLET PO SCH ×2 (08:42→20:43)
[2018-03-23] MEDS: TOLTERODINE 4 MG PO SCH (08:42)
[2018-03-23] MEDS: POLYETHYL GLYCOL 3350 17gm PACKET PO SCH (08:42)
[2018-03-23] MEDS: PAROXETINE 20 MG TABLET PO SCH (08:42)
--- NOTE | 2018-03-23 10:28 | IRU Progress Note ---
- Subjective/Serverity of Illness Date: 03/23/18 Raven was interviewed and examined in the gymnasium area on rehabilitation with therapist present. She reports an episode over the weekend where she felt a "presence" of her daughter in the room as well as someone else. The patient tried to speak to her but she did not respond. She did not actually see anyone so there was no actual visual hallucination. It was more of a sensation of a "presence." She states this has not happened before. There've been no new medications started. She has had no other neurologic or psychiatric events noted. Brief therapy update: She is able to bathe with moderate assistance. Upper body dressing is performed with modified independent level and lower body dressing requires minimum assistance. Transfers are with contact-guard assistance. For physical therapy she is transferring with standby assistance. She is able to ambulate with a front-wheeled walker with standby assistance level 243 feet. She is followed closely by orthopedics as well. There is minimal warmth and quite a bit of bruising around the knee. Bloody drainage on the dressing as before. Update on medical issues were actively monitoring and managing as follows: 1. s/p left total knee arthroplasty: There is quite a bit of puffiness around the knee as anticipated. There is some bruising. Amount of bloody discharge is about the same. 2. Diabetes Mellitus type II, recently requiring insulin and with elevated blood sugars. Her medications have been adjusted and she is now on a sliding insulin scale. 3. Systolic heart murmur consistent with aortic stenosis. She is currently asymptomatic. 4. Benign essential hypertension: Blood pressures are running 140s and occasionally higher. 5. Vertigo:Denies current symptoms. 6. Post op fever: Blood cultures and other studies have continued to be negative. She has been afebrile for several days now. 7. Acute blood loss anemia: Hemoglobin stable at 8.2. Exam Vital Signs: Temperature 98.7 F 03/23/18 07:09 Pulse Rate 91 03/23/18 07:09 Respiratory Rate 16 03/23/18 07:09 Blood Pressure 146/69 H 03/23/18 07:09 Pulse Oximetry 95 03/23/18 07:09 Height/Weight/BMI: Height 1.66 m Weight 101.5 kg Body Mass Index 36.6 - Constitutional Present: no acute distress, well nourished, well developed, obese, cooperative - Routine HEENT Exam Head: Present: normocephalic Eye: Present: EOMI ENT: Present: mucous membranes moist, oropharynx clear - Routine Neck Exam Present: supple - Routine Respiratory Exam Present: CTA bilaterally. Absent: wheezes - Routine Cardiovascular Exam Present: RRR, S1, S2, murmur (grade 2/6 second right interspace and upper left sternal border.). Absent: S3, S4 - Routine Abdominal Exam Present: soft, normoactive bowel sounds, non distended. Absent: tenderness - Routine Extremities Exam Present: no edema, normal capillary refill Comments: Left knee was inspected and palpated. Dressing remains in place with some bloody drainage but appears to be stable. Minimal warmth. Ecchymoses noted. Knee is puffy. - Routine Skin Exam Present: dry, warm, ecchymosis (left knee area) - Routine Neurological Exam Present: alert, oriented X3, CN II-XII intact - Routine Psychiatric Exam Present: normal affect, visual hallucinations (Had sensation of a "presence" in the room but did not actually see anyone. ), cooperative Results IRU - Labs Labs: Have reviewed lab data and other provider's notes. IRU A/P (1) Status post total knee replacement, left Current visit: Yes Status: Acute Patient is cooperative with therapy and making progress. She is able to ambulate with a front-wheeled walker. There is some old dried blood on the dressing. It appears to be stable. 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 (3) Coronary artery disease Qualifiers: Coronary Disease-Associated Artery/Lesion type: [place] artery [place] vs. transplanted heart: [place] heart Associated angina: without angina Qualified Code(s): I25.10 - Atherosclerotic heart disease of [place] coronary artery without angina pectoris Current visit: No Status: Chronic denies chest pains. (4) Vertigo Current visit: Yes Status: Acute (5) Systolic murmur Current visit: Yes Status: Chronic (6) Hypertension Qualifiers: Hypertension type: essential hypertension Qualified Code(s): I10 - Essential (primary) hypertension Current visit: No Status: Chronic Blood pressures typically run in the 140 and occasionally higher. (7) Acute blood loss anemia Current visit: Yes Status: Acute (8) Fever Qualifiers: Fever type: post-procedural Qualified Code(s): R50.82 - Postprocedural fever Current visit: Yes Status: Resolved Febrile workup was negative. No evidence of infection. Could've been hematoma from the knee. She's been afebrile now for several days. DVT Prophylaxis: SCD's Resuscitation Status: Do Not Resuscitate - Course Hospital Course: Dominick Banda MD: 03/20/18 11:50 Patient participates with therapy. Fever noted and negative workup. Acute blood loss anemia present which is asymptomatic. 03/23/18 10:34 No further fever noted. Negative workup for infection. Hemoglobin improved at 8.2. Sugars remain slightly elevated. Reports unusual sensation of a "presence" in her room. Thought her daughter was there but she was not. No actual vis hallucination. Has not had this before. 03/23/18 10:34 - Interventions to Obtain Goals PT Treatment Plan: Balance/Proprioception, Functional Activities, Gait Training , Patient/Family Education, Therapeutic Exercise OT Treatment Plan: ADL (Basic Care), Balance Training, Pt./Family Education, Ther. Exercise for ADL Goals Progress/Modifications: Hemoglobin remained stable to slightly improved. Sugars remain a bit up. Blood sugars are borderline elevated. She is cooperative with therapy and making progress. Left knee continues to be a bit puffy with ecchymoses. No evidence of ongoing fever and the febrile/infectious workup was negative. She did have the unusual symptom of sensing a "presence" in her room which she thought was her daughter but was not. No actual visual hallucinations. No new medications. She says she's never had this before. She does not have any other new psychiatric nor neurologic symptomatology. We will monitor.
--- NOTE | 2018-03-23 13:41 | Progress Note ---
- Date 03/23/18 Subjective: Raven was seen after lunch. She has no new complaints and denies fevers/chills/ sweats. She has chronic SOA with activity but states it's not worse than usual. She denies chest pain. She denies abdominal pain, nausea/vomiting, or bowel concerns. Objective Vital signs: Temperature 98.7 F 03/23/18 07:09 Pulse Rate 91 03/23/18 07:09 Respiratory Rate 16 03/23/18 07:09 Blood Pressure 146/69 H 03/23/18 07:09 Pulse Oximetry 95 03/23/18 07:09 Height/Weight/BMI: Height 1.66 m Weight 101.5 kg Body Mass Index 36.6 - Constitutional Present: no acute distress, well nourished, well developed - Routine HEENT Exam Head: Present: normocephalic Eye: Present: PERRL. Absent: conjunctival icterus, scleral injection - Routine Respiratory Exam Present: CTA bilaterally - Routine Cardiovascular Exam Present: RRR, S1, S2, murmur - Routine Abdominal Exam Present: soft, normoactive bowel sounds, non distended, non tender - Routine Extremities Exam Present: edema (LLE) - Routine Skin Exam Present: intact, dry, warm, wounds (dressing to left knee), ecchymosis ( significant amt of bruising to left leg) - Routine Neurological Exam Present: alert, oriented X3, moving all extremities, normal speech - Routine Psychiatric Exam Present: normal affect, normal thought process, cooperative Results - Labs CBC & Chem 7: 03/23/18 04:25 03/23/18 04:25 Microbiology Results: Microbiology 03/19/18 14:27 Peripheral/Iv Start Blood Culture - Preliminary No Growth After 3 Days 03/19/18 14:30 Peripheral/Iv Start Blood Culture - Preliminary No Growth After 3 Days Assessment and Plan Assessment and Plan: Assessment s/p L TKA by Dr. More on 03/17/18 Post op anemia secondary to blood loss Post op fever Functional dyspepsia Hypothyroidism GERD Dorsalgia Hyperlipidemia Osteoporosis Cataracts, bilateral Allergic rhinitis Type 2 diabetes mellitus -recent A1C 7.1% Coronary artery disease Primary hypertension Osteoarthritis Plan Hgb improved to 8.2. Afebrile. WBC normal. BGM elevated; glipizide was increased on 03/20/18. She has an allergy to metformin. Recommendations for glycemic control in older adults with diabetes: hgA1c goal of <7.5%. GI Prophylaxis: Omeprazole - Physician Narrative Narrative: Date: 03/23/18 Time: 1338 Hospital Course Summary Disclaimer: The visit summary below is not to be considered part of the above Progress Note. Hospital Course: 03/19/18 Agree with admission to IRU with therapies and pain control per Dr. Banda. BS's elevated. Increase Glipizide to 10mg BID from 5mg BID and add SSI. CBC in am to follow hgb and WBC. BP's acceptable - continue to monitor. Mild tachycardia today w/o sxs. Monitor. Care to return to Dr. Deluna on DC. Appreciate the consult. 03/20/18 Asymptomatic with hemoglobin of 7.8. Repeat CBC tomorrow. Continue bowel motivation. Continue to monitor temperature and blood counts. 03/23 Hgb improved to 8.2. Afebrile. WBC normal. BGM elevated; glipizide was increased on 03/20/18. She has an allergy to metformin. Recommendations for glycemic control in older adults with diabetes: hgA1c goal of <7.5%.
[2018-03-23] MEDS: FLUTICASONE NASAL SPRAY 50mcg EA NOSTRIL SCH ×2 (20:03→20:42)
[2018-03-23] MEDS: NIACIN ER 500 MG TABLET PO SCH (20:43)
[2018-03-23] MEDS: SIMVASTATIN 20 MG TABLET PO SCH (20:43)
[2018-03-24] MEDS: OMEPRAZOLE 20 MG CAPSULE PO SCH (06:16)
[2018-03-24] MEDS: LEVOTHYROXINE 25 MCG TABLET PO SCH (06:16)
[2018-03-24] MEDS: GlipiZIDE 5 MG TABLET PO SCH ×2 (08:08→17:29)
[2018-03-24] MEDS: MULTI-VIT + MINERAL (Opti-gen) TABLET PO SCH (08:29)
[2018-03-24] MEDS: CLOPIDOGREL 75 MG TABLET PO SCH (08:29)
[2018-03-24] MEDS: TOLTERODINE 4 MG PO SCH (08:29)
[2018-03-24] MEDS: DOCUSATE SODIUM 100 MG CAPSULE PO SCH ×2 (08:29→21:10)
[2018-03-24] MEDS: PAROXETINE 20 MG TABLET PO SCH (08:29)
[2018-03-24] MEDS: RANITIDINE 150 MG TABLET PO SCH ×2 (08:29→21:10)
[2018-03-24] MEDS: CALCIUM POLYCARBOPHIL 625 MG TABLET PO SCH (08:29)
[2018-03-24] MEDS: ACETAMINOPHEN 325 MG TABLET PO SCH ×2 (08:30→21:10)
[2018-03-24] MEDS: FLUTICASONE NASAL SPRAY 50mcg EA NOSTRIL SCH ×2 (08:31→21:09)
[2018-03-24] MEDS: ASPIRIN *EC* 81 MG TABLET PO SCH (08:31)
[2018-03-24] MEDS: CALCIUM 500 + VIT D 200 TABLET PO SCH ×2 (08:31→21:10)
[2018-03-24] MEDS: POLYETHYL GLYCOL 3350 17gm PACKET PO SCH (08:32)
[2018-03-24] MEDS: INSULIN ASPART 100unit/ml INJECTION SQ PRN ×3 (10:25→21:22)
--- NOTE | 2018-03-24 10:32 | IRU Progress Note ---
- Subjective/Serverity of Illness Date: 03/24/18 Raven was evaluated in her room on inpatient rehabilitation. She reports no further symptoms of a "presence" in the room. Denies visual hallucinations. She does not believe she has been confused except for that one night. The patient is cooperative with therapy. She is using CPM up to 60 flexion. Ice pack and CPM are helping with the pain. Trying to hold tramadol at the present time. Uncertain of tramadol played a role in her confusion or not. Reviewed her blood sugars this morning. They continue to be a bit high at over 200. Recently glipizide was increased. She has an intolerance to metformin. She is also on sliding insulin scale and she is receiving only about 2 units when necessary. Therapy indicates that she is standby assist for transfers but does require verbal cues for placement of the left foot. She is able to ambulate over 100 feet with a front-wheeled walker. Exam Vital Signs: Temperature 98.8 F 03/24/18 08:35 Pulse Rate 94 03/24/18 08:35 Respiratory Rate 18 03/24/18 08:35 Blood Pressure 150/81 H 03/24/18 08:35 Pulse Oximetry 99 03/24/18 08:35 Height/Weight/BMI: Height 1.66 m Weight 96.2 kg Body Mass Index 36.6 - Constitutional Present: no acute distress, well nourished, well developed, obese, cooperative - Routine HEENT Exam Eye: Present: EOMI ENT: Present: mucous membranes moist, oropharynx clear - Routine Neck Exam Present: supple - Routine Respiratory Exam Present: CTA bilaterally. Absent: wheezes - Routine Cardiovascular Exam Present: RRR, S1, S2, murmur (again the murmur seems to be loudest over the second right interspace although there is some along the left sternal border as well. Grade 2/6.). Absent: S3, S4 - Routine Abdominal Exam Present: soft, normoactive bowel sounds, non distended. Absent: tenderness - Routine Extremities Exam Present: edema (left knee area continues to be ecchymotic and a bit puffy.), normal capillary refill - Routine Skin Exam Present: dry, warm, ecchymosis (left knee area.) - Routine Neurological Exam Present: alert, oriented X3, CN II-XII intact - Routine Psychiatric Exam Present: normal affect, cooperative Results IRU - Labs Labs: Have reviewed chart data, labs and other providers notes. IRU A/P (1) Status post total knee replacement, left Current visit: Yes Status: Acute Bloody discharge is stable. Tolerating CPM well which seems to help with pain control. Progressing with therapy. Able to ambulate over 100 feet at present. (2) Type 2 diabetes mellitus Qualifiers: Diabetes mellitus alf insulin use: without marine oil terminal superintendent use Diabetes mellitus complication status: without complication Qualified Code(s): E11.9 - Type 2 diabetes mellitus without complications Current visit: No Status: Chronic Sugars are running a bit high at over 200. At home she is on oral agents. She is on glipizide here plus a sliding insulin scale. (3) Coronary artery disease Qualifiers: Coronary Disease-Associated Artery/Lesion type: [place] artery [facility] vs. transplanted heart: pokagon heart Associated angina: without angina Qualified Code(s): I25.10 - Atherosclerotic heart disease of [place] coronary artery without angina pectoris Current visit: No Status: Chronic She denies any chest pains. (4) Vertigo Current visit: Yes Status: Acute (5) Systolic murmur Current visit: Yes Status: Chronic (6) Hypertension Qualifiers: Hypertension type: essential hypertension Qualified Code(s): I10 - Essential (primary) hypertension Current visit: No Status: Chronic (7) Acute blood loss anemia Current visit: Yes Status: Acute Hemoglobin was slightly improved yesterday at 8.2. (8) Fever Qualifiers: Fever type: post-procedural Qualified Code(s): R50.82 - Postprocedural fever Current visit: Yes Status: Resolved DVT Prophylaxis: SCD's Resuscitation Status: Do Not Resuscitate - Course Hospital Course: Dominick Banda MD: 03/20/18 11:50 Patient participates with therapy. Fever noted and negative workup. Acute blood loss anemia present which is asymptomatic. 03/23/18 10:34 No further fever noted. Negative workup for infection. Hemoglobin improved at 8.2. Sugars remain slightly elevated. Reports unusual sensation of a "presence" in her room. Thought her daughter was there but she was not. No actual vis hallucination. Has not had this before. 03/23/18 10:34 03/24/18 10:35 Continues to improve with therapy. No further hallucinations or other unusual sensations. No further fever. Sugars remain elevated. - Interventions to Obtain Goals PT Treatment Plan: Balance/Proprioception, Functional Activities, Gait Training , Patient/Family Education, Therapeutic Exercise OT Treatment Plan: ADL (Basic Care), Balance Training, Pt./Family Education, Ther. Exercise for ADL
[2018-03-24] MEDS: ALBUTEROL 2.5mg/3ml (0.083%) NEB AEROSOL SCH ×2 (11:33→19:44)
--- NOTE | 2018-03-24 13:42 | Extended Care Facility Orders ---
Admission Orders Admit to:: [facility] Allergies/Adverse Reactions: Allergies adhesive Allergy (Mild, Verified 03/18/18 16:38) REDNESS amoxicillin Allergy (Unknown, Verified 03/18/18 16:38) PER H&P DATED 04/11/16 clavulanic acid Allergy (Unknown, Verified 03/18/18 16:38) PER H&P DATED 04/11/16 latex Allergy (Unknown, Verified 03/18/18 16:38) PER H&P DATED 04/12/16 metformin Allergy (Unknown, Verified 03/18/18 16:38) PER H&P DATED 04/12/16 ondansetron Allergy (Unknown, Verified 03/18/18 16:38) PER H&P DATED 04/11/16 codeine Adverse Reaction (Mild, Verified 03/18/18 16:38) LIGHT-HEADEDNESS Admitting Diagnosis: Left Knee replacement Admitting Physician: Dominick Banda MD Attending Physician: Dominick Banda MD Code Status: Do Not Resuscitate Anticiapted Length of Stay: greater than 30 days Rehab Potential: good Rehab Prognosis: good Diet: 03/18/18 Dinner Consistent Carbohydrate Diet [DIET] Calorie Level: 2000 Food Consistency: SOFT Wound/Incision Care: Keep wound clean and dry May use Facility Protocol or Standing Orders: Yes May have flu vaccine: Yes Evaluations/Treatment: PT (Outpatient PT at [facility]) [facility] Certification: I certify that SNF services are not required to be given on an Inpatient basis because of the patients need for senior care care on a continuing basis for the condition(s) for which he/she received inpatient hospital services prior to his/her transfer to the SNF. SNF inpatient care is not necessary. - Additional Information In Event of Arrest: Do Not Start CPR Resident is Aware of Diagnosis: Yes Referrals: Markie More MD [Physician] - (Dr. Caty More on 04/08/18 at 10:30 am for Post-Op follow-up. [facility] [address] [place] [address] [place] [address] ) Randal Deluna MD [Physician] -
--- NOTE | 2018-03-24 13:47 | IRU Team Meeting ---
IRU Team Meeting - Nursing Bladder Assistive Devices Utilized:: Absorbent Pad Bladder Management Level of Assist: Modified Independent Bladder Frequency of Accidents: No accidents Number of Bladder Accidents: 1 Bowel Assistive Devices Utilized:: Medication Bowel Management Level of Assist: Moderate Assistance Bowel Frequency of Accidents: No accidents Vital Signs: Vital Signs - 24 hr 03/23/18 16:00 03/23/18 20:16 03/24/18 00:00 Temperature 98.5 F 98.7 F Pulse Rate 81 86 Respiratory Rate 18 16 18 Blood Pressure 145/71 H 136/67 Pulse Oximetry 98 96 03/24/18 08:35 03/24/18 11:33 Temperature 98.8 F Pulse Rate 94 Respiratory Rate 18 16 Blood Pressure 150/81 H Pulse Oximetry 99 98 Current Medications: Acetaminophen (Tylenol) 650 mg PO BID [facility] Last Admin: 03/24/18 08:30 Dose: 650 mg Albuterol Sulfate (Proventil Neb (0.083%)) 2.5 mg AEROSOL RTBID [facility] Last Admin: 03/24/18 11:33 Dose: 2.5 mg Aspirin (Ecotrin) 81 mg PO DAILY [facility] Last Admin: 03/24/18 08:31 Dose: 81 mg Bisacodyl (Dulcolax) 10 mg RECTALLY DAILY PRN PRN Reason: Constipation Last Admin: 03/19/18 21:37 Dose: 10 mg Calcium Polycarbophil (Fiber-Lax) 625 mg PO DAILY [facility] Last Admin: 03/24/18 08:29 Dose: 625 mg Calcium/Vitamin D (Os Michael-D 500) 1 tab PO BID [facility] Last Admin: 03/24/18 08:31 Dose: 1 tab Clopidogrel Bisulfate (Plavix) 75 mg PO DAILY [facility] Last Admin: 03/24/18 08:29 Dose: 75 mg Docusate Sodium (Colace) 100 mg PO BID [facility] Last Admin: 03/24/18 08:29 Dose: 100 mg Enalapril Maleate (Vasotec) 20 mg PO DAILY [facility] Last Admin: 03/24/18 08:31 Dose: 20 mg Fluticasone Propionate (Flonase) 1 spray EA NOSTRIL BID [facility] Last Admin: 03/24/18 08:31 Dose: 1 spray Glipizide (Glucotrol) 10 mg PO 0730,1700 [facility] Last Admin: 03/24/18 08:08 Dose: 10 mg Hydrochlorothiazide (Hydrodiuril) 25 mg PO WB [facility] Last Admin: 03/24/18 08:29 Dose: 25 mg Insulin Aspart (Novolog) 1 - 5 unit SQ SS PRN; Protocol PRN Reason: Hyperglycemia Last Admin: 03/24/18 10:25 Dose: 2 unit Levothyroxine Sodium (Synthroid) 25 mcg PO ACB [facility] Last Admin: 03/24/18 06:16 Dose: 25 mcg Magnesium Hydroxide (Mom) 30 ml PO DAILY [facility] Last Admin: 03/24/18 08:32 Dose: 30 ml Metoprolol Tartrate (Lopressor) 50 mg PO BIDWM [facility] Last Admin: 03/24/18 08:29 Dose: 50 mg Multivitamins/Minerals (Vision) 1 tab PO DAILY [facility] Last Admin: 03/24/18 08:29 Dose: 1 tab Niacin (Niaspan) 500 mg PO HS [facility] Last Admin: 03/23/18 20:43 Dose: 500 mg Omeprazole (Prilosec) 40 mg PO ACB [facility] Last Admin: 03/24/18 06:16 Dose: 40 mg Paroxetine HCl (Paxil) 30 mg PO DAILY [facility] Last Admin: 03/24/18 08:29 Dose: 30 mg Polyethylene Glycol (Miralax) 17 gm PO DAILY [facility] Last Admin: 03/24/18 08:32 Dose: 17 gm Ranitidine HCl (Zantac) 150 mg PO BID [facility] Last Admin: 03/24/18 08:29 Dose: 150 mg Simvastatin (Zocor) 20 mg PO HS [facility] Last Admin: 03/23/18 20:43 Dose: 20 mg Tolterodine Tartrate (Detrol La) 4 mg PO DAILY [facility] Last Admin: 03/24/18 08:29 Dose: 4 mg Tramadol HCl (Ultram) 50 mg PO Q6H PRN PRN Reason: Pain Last Admin: 03/23/18 07:11 Dose: 50 mg Current Medical Issues: Diabetes Mellitus type II, acute blood loss anemia, hypertension Comments: I certify that I personally led the interdisciplinary team meeting and agree with comments, barriers and goals indicated. Team meeting was held in the patient's room with the patient and the following family members present: patient alone Ms. Mckenzie is eating and drinking adequately. Pain is adequately controlled with use of ice pack and scheduled Tylenol. She has had no nausea no vomiting. Had an episode of confusion or unusual "sensation of the presence" in her room a couple of days ago which has not been repeated. Her previously noted episode of fever has resolved and has not returned. Cultures have been negative. - Physical Therapy Bed, Chair, Wheelchair Transfer Assist: Stand By Assist/Supervision, 1 Person Assist Ambulation Ability: Stand By Assist/Supervision, Household Exception, 1 Person Assist Ambulation Distance: 93 Stair Climbing Ability: Patient Unsafe/Unable Car Transfer Ability: Stand By Assist/Supervision, 1 Person Assist Comments: Patient is a significant functional gains with regard to physical therapy. She continues to take additional time with transfers and ambulation due to short stride length and fear of hurting her knee. She is standby assist with front- wheeled walker for safety and demonstrates good ambulatory ability. - Occupational Therapy Eating Ability: Independent Grooming Ability: Minimal Assistance Bathing Ability: Minimal Assistance Upper Body Dressing Ability: Stand By Assist/Supervision Lower Body Dressing Ability: Stand By Assist/Supervision Tub Transfer Assist: Patient Unsafe/Unable Toileting Assist: Stand By Assist/Supervision Toilet Transfer Assist: Stand By Assist/Supervision Comments: She has made gains with regard to occupational therapy. She is easily distracted and does require verbal cues. Overall however she has done well with occupational therapy. - Goals Physical Therapy Goals: 03/24/18. 1.) Increase range of motion to 95 degrees of flexion and 0 degrees of knee extension. 2.) Ambulation distance of 150 feet with use of walker. Occupational Therapy Goals: OT goals 03/24/18: 1.) Toileting with modified independence. 2.) Lower body dressing with modified independence. - Barriers to Discharge Barriers to Attaining Goals: Endurance (patient is encouraged to take fewer rest breaks and increase activity time.), Other (patient has some reduced confidence and positive reinforcement is offered. Reduced range of motion noted and therapeutic exercise and manual movement is recommended.) - Care Plan Anticipated Length of Stay (days): 1 Anticipated DC Destination: [facility]Facility I have led this team conference and agree with the plan.
--- NOTE | 2018-03-24 15:34 | Letter to Referring Physician ---
Dear Dr. Ortega, This is a brief note to bring you up-to-date on the status of Raven Mckenzie and her stay on the acute inpatient rehabilitation unit at [facility]. As you are likely aware, this patient was admitted to [facility] on 03/17/18 for elective left knee replacement by Dr. More. The patient was stabilized while on the acute level and admitted to inpatient rehabilitation unit at [facility] on March 18, 2018. While on inpatient rehabilitation, this patient was seen by occupational therapy and physical therapy and improved overall in their functional ability. We also monitored and managed the patient's acute blood loss anemia and diabetes mellitus while on Acute Rehab. She was noted to have some excess bleeding from the wound but no evidence of infection. Venous Doppler in the left leg was negative. Although her Plavix and aspirin have been held for a few days prior to this procedure, it was restarted thereafter. Please see a copy of the history and physical examination as well as discharge summary faxed separately for further details. Please note that her final hemoglobin was 8.2 g percent. She did not receive any blood transfusions in the hospital. Also please note that she had an episode of "confusion" characterized by a "sensation of a presence in the room." This was on approximately 03/22/2018. She felt as though her daughter was in the room along with some other woman when indeed no one was in the room. She states this was not a visual hallucination. Nevertheless, we discontinued tramadol thereafter and she had no further reports of confusion or hallucination. She is thus being sent back to [facility] to her room for outpatient physical therapy. She will be receiving Tylenol twice daily on a routine basis but no other narcotic pain medication. She will continue the Polar Pack to her left knee while at [facility]. Anticipated date of dismissal is 03/25/2018. Thank you for allowing us to be involved in this nice patient's care. Please contact me directly should you have any questions regarding their stay on the inpatient rehabilitation unit. Sincerely, Dominick Banda M.D.
[2018-03-24] MEDS: SIMVASTATIN 20 MG TABLET PO SCH (21:10)
[2018-03-24] MEDS: NIACIN ER 500 MG TABLET PO SCH (21:10)
[2018-03-25] MEDS: OMEPRAZOLE 20 MG CAPSULE PO SCH (06:10)
[2018-03-25] MEDS: LEVOTHYROXINE 25 MCG TABLET PO SCH (06:10)
[2018-03-25] MEDS: INSULIN ASPART 100unit/ml INJECTION SQ PRN ×2 (06:15→10:35)
[2018-03-25] MEDS: CALCIUM POLYCARBOPHIL 625 MG TABLET PO SCH (08:02)
[2018-03-25] MEDS: POLYETHYL GLYCOL 3350 17gm PACKET PO SCH (08:02)
[2018-03-25 08:03] VITALS: BP 156/77; PULSE 96; TEMP 98.8
[2018-03-25] MEDS: DOCUSATE SODIUM 100 MG CAPSULE PO SCH (08:03)
[2018-03-25] MEDS: GlipiZIDE 5 MG TABLET PO SCH (08:11)
[2018-03-25] MEDS: ASPIRIN *EC* 81 MG TABLET PO SCH (08:12)
[2018-03-25] MEDS: TOLTERODINE 4 MG PO SCH (08:13)
[2018-03-25] MEDS: MULTI-VIT + MINERAL (Opti-gen) TABLET PO SCH (08:13)
[2018-03-25] MEDS: PAROXETINE 20 MG TABLET PO SCH (08:13)
[2018-03-25] MEDS: CLOPIDOGREL 75 MG TABLET PO SCH (08:13)
[2018-03-25] MEDS: CALCIUM 500 + VIT D 200 TABLET PO SCH (08:14)
[2018-03-25] MEDS: RANITIDINE 150 MG TABLET PO SCH (08:14)
[2018-03-25] MEDS: ACETAMINOPHEN 325 MG TABLET PO SCH (08:19)
[2018-03-25] MEDS: ALBUTEROL 2.5mg/3ml (0.083%) NEB AEROSOL SCH (10:12)
[2018-03-25 10:17] VITALS: RESP 18; O2SAT 100
[2018-03-25] MEDS: FLUTICASONE NASAL SPRAY 50mcg EA NOSTRIL SCH (12:34)
--- NOTE | 2018-03-26 14:32 | Discharge Summary ---
Discharge Information Date of admission: 03/18/18 14:00 Anticipated date of discharge: 03/25/18 Attending Physician: Dominick Banda MD Primary care physician: Randal Deluna MD Consults: 03/18/18 15:24 Physician Consult [CONS] Routine Consulting Provider: Luis Alberto Macias Reason For Exam: medical management Ordering Provider has Notified Social Media Manager: No 03/18/18 15:25 Physician Consult [CONS] Routine Consulting Provider: Markie More Reason For Exam: follow up knee surgery Ordering Provider has Notified Social Media Manager: No 03/20/18 07:27 Case Management Consult [Case Management Consult] [CONS] Routine Reason For Exam: overnight oximetry - Discharge Diagnosis (1) Status post total knee replacement, left Status: Acute (2) Type 2 diabetes mellitus Status: Chronic (3) Coronary artery disease Status: Chronic (4) Vertigo Status: Acute (5) Systolic murmur Status: Chronic (6) Hypertension Status: Chronic (7) Acute blood loss anemia Status: Acute 1. S/P left total knee replacement 2. Primary degenerative arthritis of the knee 3. Acute blood loss anemia 4. Benign essential hypertension 5. Post op fever - resolved and of uncertain etiology 6. Diabetes Mellitus Type II, not on - Laboratory Labs: 03/23/18 04:25 03/23/18 04:25 - Microbiology Microbiology 03/19/18 14:27 Peripheral/Iv Start Blood Culture - Final No Growth After 5 Days 03/19/18 14:30 Peripheral/Iv Start Blood Culture - Final No Growth After 5 Days History of Present Illness HPI: Ms. Mckenzie underwent elective left total knee replacement by Dr. More on 2017. She did develop significantly elevated blood pressures in the immediate postoperative timeframe as well as elevated blood sugars at 291. The patient did have some excess bleeding from the wound as well. She was felt to be a good candidate for inpatient rehabilitation to allow her to return to her former level of functioning. Hospital Course This is a general summary of the patient's hospital course. For more details refer to the complete medical record. The patient was admitted to acute inpatient rehabilitation on 03/18/2018. She was followed by the orthopedic service with Dr. More, the hospitalist service as well as Dr. Banda, Doctor Of Radiology. The patient was noted to have some acute blood loss anemia. Her lowest hemoglobin recorded was 7.8 on 03/20/2018. As of March 23 it was 8.2 g percent. She did not receive any blood transfusions either on acute care or in rehabilitation. Her blood sugars were also monitored and were typically over 200. She was seen in consultation by certified medical educator at [facility]. While she received low dose sliding scale insulin here, she was not sent home on insulin. Her blood pressures were also monitored with most values being around 135 or so. She had no evidence of hypoxemia. It is noted that she had one episode of confusion wherein she "felt a presence" of her daughter and another woman in the room. She states this was not a typical visual hallucination but simply a sensation of someone else was in the room with her. This was on approximately 03/22/2018. Tramadol was discontinued thereafter and she did not have further episodes of confusion. The bloody drainage was monitored by the orthopedic service. This remained stable. Venous Doppler was done on the left leg failing to reveal evidence of DVT. She was continued on her Plavix and aspirin. It is also noted that she had an episode of low-grade fever (101) early on in her stay on rehabilitation. Chest radiograph, urinalysis and blood cultures were obtained all of which were negative. Etiology of her low-grade temperature was uncertain and this has not recurred. The following levels of functional competence are to be considered preliminary information. The reader is encouraged to refer to actual therapy notes and reports for specific details. She was followed closely by physical therapy and had the following functional levels of competence at the time of dismissal: She was able to perform car transfers with standby assistance. She was able to ambulate over 100 feet with a front-wheeled walker safely. She was also seen by occupational therapy and have the following functional levels of competence at the time of dismissal: She was able to bathe with only standby assistance. Dressing was also with standby assistance. She was able to transfer with assistance of an assistive device only. It was recommended that the patient be returned to her long-term care room although it was recommended that she undergo outpatient physical therapy. She will continue the Polar Pack as well. It is noted that she was given a prescription for no narcotic pain medications at the time of dismissal. She will continue acetaminophen sustained release 650 mg twice daily on a regular basis for the time being. She will follow-up with Dr. More as an outpatient. Hospital course: 03/19/18 Agree with admission to IRU with therapies and pain control per Dr. Banda. BS's elevated. Increase Glipizide to 10mg BID from 5mg BID and add SSI. CBC in am to follow hgb and WBC. BP's acceptable - continue to monitor. Mild tachycardia today w/o sxs. Monitor. Care to return to Dr. Deluna on DC. Appreciate the consult. 03/20/18 Asymptomatic with hemoglobin of 7.8. Repeat CBC tomorrow. Continue bowel motivation. Continue to monitor temperature and blood counts. 03/23 Hgb improved to 8.2. Afebrile. WBC normal. BGM elevated; glipizide was increased on 03/20/18. She has an allergy to metformin. Recommendations for glycemic control in older adults with diabetes: hgA1c goal of <7.5%. Time spent with patient: greater than 35 minutes Resuscitation Status: Do Not Resuscitate Discharge Plan - Med Rec/Dispo Referrals/Follow Up: Markie More MD [Physician] - (Dr. Caty More on 04/08/18 at 10:30 am for Post-Op follow-up. [facility] [address] [place] [address] [place] [id number] ) Randal Deluna MD [Physician] - (Dr. Stephy Deluna f/u 1-2 weeks after discharge. ) Prescriptions: Continue hydroCHLOROthiazide [Hydrochlorothiazide] 25 mg PO DAILY #0 Fluticasone Nasal [place] [Flonase] 1 spray EA NOSTRIL BID #0 Levothyroxine Tab [Synthroid] 25 mcg PO ACB Acetaminophen 650 mg PO BID Simvastatin [Zocor] 20 mg PO HS Calcium Carbonate/Vitamin D3 [Calcium 500-Vit D3 200 Tablet] 1 tab PO BID Aspirin [Aspirin EC] 81 mg PO DAILY PARoxetine HCl [Paxil] 30 mg PO DAILY GlipiZIDE [Glucotrol] 5 mg PO BID Metoprolol Tartrate [Lopressor] 50 mg PO BID Clopidogrel [Plavix] 75 mg PO DAILY Enalapril [Vasotec] 20 mg PO DAILY Methylcellulose [Citrucel] 500 mg PO DAILY Esomeprazole Magnesium [Nexium] 40 mg PO ACB raNITIdine HCl [Zantac] 150 mg PO BID Albuterol/Ipratropium [Duoneb] 1 unit AEROSOL BID Milk of Magnesia [Mom] 30 ml PO DAILY udc PEG 3350 17gm PACKET [Miralax] 17 gm PO DAILY packet Niacin [Niacin ER] 500 mg PO HS #0 Docusate Sodium [Colace] 100 mg PO BID Tolterodine LA 4 mg [Detrol LA] 4 mg PO DAILY Cholecalciferol (Vitamin D3) [Vitamin D3] 1 cap PO DAILY vctprlck-ajm-kriqo acid 0.4 mg-lycopene 300 mcg-lutein 250 mcg tablet 1 tab PO DAILY Discontinued Tramadol [Ultram] 50 mg PO Q6HR Tramadol [Ultram] 50 mg PO Q6H PRN tab PRN Reason: Pain - Disposition 04 To [facility] Home/Facility - Dismissal Complete Discharge Instructions are:: Complete
== END 2018-03-25 13:50 | DRG 560 ==
PROVIDERS: ADMIT Internal Medicine; ATTEND Internal Medicine